=== PATIENT | female | born 1945 | race Caucasian/White ===

== ENCOUNTER → 2016-06-06 | Outpatient (CLI) | payer MEDICARE, MEDICAID ==
[~2016-06-06] MED LIST: PREMARIN
[2016-06-06 12:26] LABS: Basophils # (auto) 0 uL; Basophils % (auto) 0.4 % (0.0-2.0); Eosinophils # (auto) 0.3 uL; Eosinophils % (auto) 5.5 % (0.0-7.0); Hematocrit 40.3 % (36.0-46.0); Hemoglobin 13.1 g/dL (12.2-16.2); Lymphocytes # (auto) 1.7 uL; Lymphocytes % (auto) 29.5 % (10.0-50.0); Mean Corpuscular Hemoglobin 30.2 pg (28.0-32.0); Mean Corpuscular Hgb Conc. 32.4 g/dL (32.0-36.0); Mean Corpuscular Volume 93.2 fL (80.0-100.0); Mean Platelet Volume 9.6 fL (7.4-10.4); Monocytes # (auto) 0.4 uL; Monocytes % (auto) 7.3 % (0.0-12.0); Neutrophils # (auto) 3.3 uL; Neutrophils % (auto) 57.3 % (37.0-80.0); Platelet Count (auto) 296 10^3/uL (140-450); Red Cell Distribution Width 13.9 % (11.6-16.0); White Blood Cell 5.7 10^3/uL (4.4-10.8)
[2016-06-06 12:59] LABS: Albumin 3.7 g/dL (3.4-5.0); Calcium 10.2 mg/dL (8.5-10.1); Potassium 4.6 mmol/L (3.5-5.1)
[2016-06-06 13:04] LABS: Bilirubin, Total 0.3 mg/dL (0.2-1.0); Total Protein 7.6 g/dL (6.4-8.2)
== END | disposition home or self-care (01) ==
LOC: Rad HDHVI 10:45
PROVIDERS: ATTEND Internal Medicine Cardiovascular Disease
DX: I10 Essential (primary) hypertension (principal); D64.9 Anemia, unspecified
CPT/HCPCS: 36415; 70490; 80053; 85025

== ENCOUNTER → 2016-08-24 | Outpatient (CLI) | payer MEDICARE, MEDICAID ==
[2016-08-24 12:32] LABS: BUN/Creatinine Ratio 27.5; Calcium 9.8 mg/dL (8.5-10.1); Magnesium 2.5 mg/dL (1.6-2.6); Potassium 3.4 mmol/L (3.5-5.1)
== END | disposition home or self-care (01) ==
LOC: LAB 10:01
PROVIDERS: ATTEND Internal Medicine Cardiovascular Disease
DX: I10 Essential (primary) hypertension (principal); E83.42 Hypomagnesemia; D51.9 Vitamin B12 deficiency anemia, unspecified
CPT/HCPCS: 36415; 80048; 82607; 83735

== ENCOUNTER → 2016-10-05 | Outpatient (CLI) | payer MEDICARE, MEDICAID | END | disposition home or self-care (01) | LOC: Rad HDHVI 10:17 | PROVIDERS: ATTEND Internal Medicine Cardiovascular Disease | DX: M17.12 Unilateral primary osteoarthritis, left knee (principal); M47.894 Other spondylosis, thoracic region; I70.0 Atherosclerosis of aorta; R06.02 Shortness of breath | CPT/HCPCS: 71020; 73562 ==

== ENCOUNTER → 2017-01-17 | Outpatient (CLI) | payer MEDICARE, MEDICAID | END | disposition home or self-care (01) | LOC: CHF HDHVI 10:15 | PROVIDERS: ATTEND Internal Medicine Cardiovascular Disease | DX: I50.9 Heart failure, unspecified (principal) | CPT/HCPCS: G0463 ==

== ENCOUNTER → 2017-02-10 | Outpatient (CLI) | payer MEDICARE, MEDICAID | LOC: Rad HDHVI 13:14 | PROVIDERS: ATTEND Internal Medicine Cardiovascular Disease | DX: Z01.811 Encounter for preprocedural respiratory examination (principal); M43.26 Fusion of spine, lumbar region | CPT/HCPCS: 71020 ==

== ENCOUNTER 2017-02-13 06:55 | Day surgery (SDC) | payer MEDICARE, MEDICAID ==
[2017-02-13] MEDS ORDERED: IOHEXOL 350 MG/ML 100ML IJ ONE ×2 (08:10→09:05)
[2017-02-13] MEDS ORDERED: LIDOCAINE 2%HCL (LOCAL ANESTH.) INJ 20ML MDV ONE (08:10)
[2017-02-13] MEDS ORDERED: HEPARIN 1,000 UNITS/ml 1ML VIAL ONE (09:12)
[2017-02-13] MEDS ORDERED: MIDAZOLAM HCL 1MG/1ML-2 ML VIAL ONE (09:12)
[2017-02-13] MEDS ORDERED: fentaNYL CITRATE 100 MCG/2 ML VL ONE (09:12)
[2017-02-13] MEDS ORDERED: ANGIOMAX 250 MG VIAL IV ONE (09:13)
[2017-02-13] MEDS ORDERED: SODIUM CHL 0.9% 0 ML ONE (09:13)
[2017-02-13] MEDS ORDERED: cloNIDine HCL 0.1 MG TAB PO ONE (10:15)
== END 2017-02-13 12:30 | disposition home or self-care (01) ==
LOC: CATH 06:55
PROVIDERS: ATTEND Internal Medicine
DX: R07.9 Chest pain, unspecified (principal); Z88.4 Allergy status to anesthetic agent; Z88.0 Allergy status to penicillin; Z88.8 Allergy status to other drugs, medicaments and biological substances; I10 Essential (primary) hypertension; F41.9 Anxiety disorder, unspecified
CPT/HCPCS: 93458; C1760; C1894; J1644; J2250; J3010; J7030; J7040; Q9967; 99152; 99153

== ENCOUNTER → 2017-03-13 | Outpatient (CLI) | payer MEDICARE, MEDICAID | END | disposition home or self-care (01) | LOC: RADONC 12:43 | PROVIDERS: ATTEND Internal Medicine | DX: M85.80 Other specified disorders of bone density and structure, unspecified site (principal); M19.011 Primary osteoarthritis, right shoulder; S49.91XA Unspecified injury of right shoulder and upper arm, initial encounter; X58.XXXA Exposure to other specified factors, initial encounter; Y93.89 Activity, other specified; Y92.89 Other specified places as the place of occurrence of the external cause; Y99.8 Other external cause status | CPT/HCPCS: 73010; 73030; 73060 ==

== ENCOUNTER → 2017-08-09 | Outpatient (CLI) | payer MEDICARE, MEDICAID ==
[2017-08-09 12:17] LABS: Basophils # (auto) 0 uL; Basophils % (auto) 0.6 % (0.0-2.0); Eosinophils # (auto) 0.1 uL; Eosinophils % (auto) 1.7 % (0.0-7.0); Hematocrit 42.2 % (36.0-46.0); Hemoglobin 13.9 g/dL (12.2-16.2); Lymphocytes # (auto) 1.7 uL; Lymphocytes % (auto) 29.8 % (10.0-50.0); Mean Corpuscular Hemoglobin 30.9 pg (28.0-32.0); Mean Corpuscular Hgb Conc. 32.9 g/dL (32.0-36.0); Monocytes # (auto) 0.3 uL; Monocytes % (auto) 4.8 % (0.0-12.0); Neutrophils # (auto) 3.7 uL; Neutrophils % (auto) 63.1 % (37.0-80.0); Nucleated Red Blood Cells % 0.1 %; Platelet Count (auto) 291 10^3/uL (140-450); Red Blood Cells 4.49 10^6/uL (4.0-5.20); Red Cell Distribution Width 14.3 % (11.8-14.3); White Blood Cell 5.8 10^3/uL (4.4-10.8)
[2017-08-09 12:20] LABS: BUN/Creatinine Ratio 18.8; Calcium 10.1 mg/dL (8.5-10.1); Potassium 3.2 mmol/L (3.5-5.1)
[2017-08-09 12:27] LABS: INR 0.9 (0.9-1.15); Partial Thromboplastin Time 25.9 sec (22.64-33.71); Prothrombin Time 9.8 sec (9.37-12.3)
== END | disposition home or self-care (01) ==
LOC: LAB 10:45
PROVIDERS: ATTEND Internal Medicine Cardiovascular Disease
DX: Z01.812 Encounter for preprocedural laboratory examination (principal); I10 Essential (primary) hypertension; Z79.01 Long term (current) use of anticoagulants
CPT/HCPCS: 36415; 80048; 85025; 85610; 85730

== ENCOUNTER → 2018-05-01 | Outpatient (CLI) | payer MEDICARE, MEDICAID ==
[2018-05-01 15:58] LABS: Basophils # (auto) 0.1 uL; Basophils % (auto) 0.9 % (0.0-2.0); Eosinophils # (auto) 0.2 uL; Eosinophils % (auto) 3.2 % (0.0-7.0); Hemoglobin 13.3 g/dL (12.2-16.2); Lymphocytes # (auto) 1.7 uL; Lymphocytes % (auto) 30.5 % (10.0-50.0); Mean Corpuscular Hemoglobin 31.1 pg (28.0-32.0); Mean Corpuscular Hgb Conc. 33.3 g/dL (32.0-36.0); Mean Corpuscular Volume 93.3 fL (80.0-100.0); Monocytes # (auto) 0.4 uL; Monocytes % (auto) 7.4 % (0.0-12.0); Neutrophils # (auto) 3.2 uL; Nucleated Red Blood Cells % 0.4 %; Platelet Count (auto) 232 10^3/uL (140-450); Red Blood Cells 4.29 10^6/uL (4.0-5.20); Red Cell Distribution Width 13.4 % (11.8-14.3); White Blood Cell 5.5 10^3/uL (4.4-10.8)
[2018-05-01 16:08] LABS: Calcium 9.6 mg/dL (8.5-10.1); Potassium 3.9 mmol/L (3.5-5.1)
[2018-05-01 16:10] LABS: BUN/Creatinine Ratio 36.1
[2018-05-01 16:12] LABS: INR 0.92 (0.9-1.15); Partial Thromboplastin Time 27.1 sec (23.78-33.04); Prothrombin Time 9.9 sec (9.27-12.13)
== END | disposition home or self-care (01) ==
LOC: LAB 12:23
PROVIDERS: ATTEND Internal Medicine
DX: Z01.812 Encounter for preprocedural laboratory examination (principal); D64.9 Anemia, unspecified; R79.1 Abnormal coagulation profile; I10 Essential (primary) hypertension
CPT/HCPCS: 36415; 80048; 85025; 85610; 85730

== ENCOUNTER → 2018-05-02 | Outpatient (CLI) | payer MEDICARE, MEDICAID | END | disposition home or self-care (01) | LOC: Rad HDHVI 12:52 | PROVIDERS: ATTEND Internal Medicine Cardiovascular Disease | DX: I08.0 Rheumatic disorders of both mitral and aortic valves (principal) | CPT/HCPCS: 93306 ==

== ENCOUNTER 2018-11-22 16:08 | Emergency (ER) | payer MEDICARE, MEDICAID ==
[~2018-11-22] VITALS: Ht 162.6 cm; Wt 65.8 kg
[2018-11-22] MEDS ORDERED: KETOROLAC TROMETH 60MG/2ML VIAL IM ONE (17:45)
[2018-11-22 20:05] VITALS: BP 186/87
== END 2018-11-22 20:17 | disposition home or self-care (01) ==
LOC: EDBD 16:08 → ER 16:08
DX: S66.911A Strain of unspecified muscle, fascia and tendon at wrist and hand level, right hand, initial encounter (principal); S39.012A Strain of muscle, fascia and tendon of lower back, initial encounter; I10 Essential (primary) hypertension; M10.9 Gout, unspecified; Z90.49 Acquired absence of other specified parts of digestive tract; Z90.710 Acquired absence of both cervix and uterus; Z90.89 Acquired absence of other organs; Z88.0 Allergy status to penicillin; Z88.6 Allergy status to analgesic agent; V43.52XA Car driver injured in collision with other type car in traffic accident, initial encounter; Y93.89 Activity, other specified; Y99.8 Other external cause status; Y92.410 Unspecified street and highway as the place of occurrence of the external cause
CPT/HCPCS: 72100; 73100; 96372; 99283; J1885

== ENCOUNTER → 2018-12-12 | Outpatient (CLI) | payer MEDICARE, MEDICAID ==
[2018-12-12 15:52] LABS: Basophils # (auto) 0 uL; Basophils % (auto) 0.5 % (0.0-2.0); Eosinophils # (auto) 0.2 uL; Eosinophils % (auto) 2.1 % (0.0-7.0); Hematocrit 40.5 % (36.0-46.0); Hemoglobin 13.3 g/dL (12.2-16.2); Lymphocytes # (auto) 1.5 uL; Lymphocytes % (auto) 19.1 % (10.0-50.0); Mean Corpuscular Hemoglobin 31.7 pg (28.0-32.0); Mean Corpuscular Hgb Conc. 32.8 g/dL (32.0-36.0); Mean Corpuscular Volume 96.6 fL (80.0-100.0); Monocytes # (auto) 0.4 uL; Monocytes % (auto) 4.7 % (0.0-12.0); Neutrophils # (auto) 5.6 uL; Neutrophils % (auto) 73.6 % (37.0-80.0); Platelet Count (auto) 283 10^3/uL (140-450); White Blood Cell 7.6 10^3/uL (4.4-10.8)
[2018-12-12 16:04] LABS: BUN/Creatinine Ratio 24.5; Calcium 9.9 mg/dL (8.5-10.1); Potassium 3.6 mmol/L (3.5-5.1)
[2018-12-12 17:43] LABS: INR < 0.93 (0.9-1.15); Partial Thromboplastin Time 26.4 sec (23.64-32.05)
== END | disposition home or self-care (01) ==
LOC: LAB 11:56
PROVIDERS: ATTEND Internal Medicine Cardiovascular Disease
DX: Z01.812 Encounter for preprocedural laboratory examination (principal); I10 Essential (primary) hypertension; Z98.890 Other specified postprocedural states
CPT/HCPCS: 36415; 80048; 85025; 85610; 85730

== ENCOUNTER → 2019-05-17 | Outpatient (CLI) | payer MEDICARE, MEDICAID ==
[2019-05-17 09:25] VITALS: BP 156/80
--- NOTE | 2019-05-17 09:25 | NUR ---
CHF PT ARRIVED TO THE CHF CLINIC FOR A PRE OP APPOINTMENT FOR REVERSE SHOULDER SURGERY. A/O X4 VSS
--- NOTE | 2019-05-17 09:45 | NUR ---
Pre-Op Discharge Summary: See e-MAR for any medications given for this visit. Pre-op orders received and carried out per MD of EKG and chest xrays. Patient given a copy of EKG with instructions to go to [facility] out patient for further follow up care. LABS WERE NOT DRAWN SURGERY DATE IS TOO FAR OUT. NOTE EKG DONE BY ISMA MELGAR
[2019-05-17 14:06] VITALS: BP 156/80
== END | disposition home or self-care (01) ==
LOC: Rad HDHVI 09:00
PROVIDERS: ATTEND Internal Medicine Cardiovascular Disease
DX: Z01.811 Encounter for preprocedural respiratory examination (principal); I70.0 Atherosclerosis of aorta
CPT/HCPCS: 71045; 93005; G0463

== ENCOUNTER 2019-07-29 06:22 | Inpatient (IN) | payer MEDICARE, MEDICAID ==
[2019-07-23 15:09] LABS: Basophils # (auto) 0.1 10 ^3/uL (0-0.2); Basophils % (auto) 0.9 % (0.0-2.0); Eosinophils # (auto) 0.1 10 ^3/uL (0-0.8); Eosinophils % (auto) 2.3 % (0.0-7.0); Hematocrit 40.7 % (36.0-46.0); Hemoglobin 13.1 g/dL (12.2-16.2); Lymphocytes # (auto) 1.8 10 ^3/uL (0.4-5.4); Lymphocytes % (auto) 31.1 % (10.0-50.0); Mean Corpuscular Hemoglobin 30.2 pg (28.0-32.0); Mean Corpuscular Hgb Conc. 32.1 g/dL (32.0-36.0); Mean Corpuscular Volume 93.9 fL (80.0-100.0); Monocytes # (auto) 0.4 10 ^3/uL (0-1.3); Monocytes % (auto) 7.4 % (0.0-12.0); Neutrophils # (auto) 3.4 10 ^3/uL (1.6-8.6); Neutrophils % (auto) 58.3 % (37.0-80.0); Platelet Count (auto) 278 10^3/uL (140-450); Red Blood Cells 4.33 10^6/uL (4.0-5.20); Red Cell Distribution Width 13.3 % (11.8-14.3); White Blood Cell 5.9 10^3/uL (4.4-10.8)
[2019-07-23 15:31] LABS: INR 0.97 (0.9-1.15)
[2019-07-23 15:45] LABS: Urine Bacteria NONE SEEN /hpf (None Seen); Urine Blood Negative /uL (Negative); Urine Hyaline Cast FEW /lpf (0 - 2); Urine Mucus FEW (None Seen); Urine Specific Gravity 1.026 (1.001-1.035); Urine WBC 1 /hpf (0 - 5)
[2019-07-23 15:59] LABS: Albumin 3.8 g/dL (3.4-5.0); Potassium 3.6 mmol/L (3.5-5.1)
[2019-07-23 16:03] LABS: BUN/Creatinine Ratio 29.5; Bilirubin, Total 0.5 mg/dL (0.2-1.0); Total Protein 7.8 g/dL (6.4-8.2)
[~2019-07-29] VITALS: Ht 162.6 cm; Wt 69.6 kg
[~2019-07-29 06:22] MED LIST changes: +ALPR0.25 PO; +ATEN-60 PO; +HYDR25TA4 PO; +IBUP800T24 PO; +NAPR375T27 PO; -PREMARIN; +ZOLP-158 PO
[2019-07-29] MEDS ORDERED: VANCOMYCIN 1GM/250ML 250 ML IV ONE (06:45)
[2019-07-29] MEDS ORDERED: ACETAMINOPHEN IV 1000 MG/100ML (10MG/ML) IV ONE (06:45)
[2019-07-29] MEDS ORDERED: PREGABALIN CAPSULE 75 MG CAP PO ONE (06:45)
[2019-07-29] MEDS ORDERED: CELECOXIB 100 MG CAP PO ONE (06:45)
[2019-07-29] MEDS ORDERED: VANCOMYCIN HCL 1000 MG VL ONE ×2 (06:48→07:20)
[2019-07-29] MEDS ORDERED: CELECOXIB 100 MG CAP ONE (06:48)
[2019-07-29] MEDS ORDERED: ACETAMINOPHEN IV 100 ML IV ONE (06:48)
[2019-07-29] MEDS ORDERED: BUPIVACAINE W/ EPINEPH 0.25% INJ 50ML MDV ONE (07:18)
[2019-07-29] MEDS ORDERED: MORPHINE SULF(PF) 0.5MG/ML 10ML VIAL ONE (07:21)
[2019-07-29] MEDS ORDERED: ROPIVACAINE 0.5% (5MG/ML) 20ML AMPULE IJ ONE (07:35)
[2019-07-29] MEDS ORDERED: FAMOTIDINE (10MG/ML) 2ML VL IV ONE (07:36)
[2019-07-29] MEDS ORDERED: PROPOFOL 10 MG/ML 20 ML IV ONE (07:39)
[2019-07-29] MEDS ORDERED: MIDAZOLAM HCL 1MG/1ML-2 ML VIAL IV ONE (07:39)
[2019-07-29] MEDS ORDERED: ROCURONIUM 10MG/ML 10ML VIAL IV ONE (07:39)
[2019-07-29] MEDS ORDERED: NEOSTIGMINE 1 MG/ML INJ (10mg/10ML VIAL) IV ONE (07:39)
[2019-07-29] MEDS ORDERED: HYDROmorphone HCL 2 MG/ML VL IV ONE (07:39)
[2019-07-29] MEDS ORDERED: fentaNYL CITRATE 100 MCG/2 ML VL IV ONE (07:39)
[2019-07-29] MEDS ORDERED: ONDANSETRON HCL 4 MG/2 ML VIAL IV ONE (07:39)
[2019-07-29] MEDS ORDERED: DexAMETHasone SOD PHOS 10MG/1ML VIAL INJ IV ONE (07:39)
[2019-07-29] MEDS ORDERED: GLYCOPYRROLATE 0.2 MG/ML 1ML VIAL IV ONE (07:39)
[2019-07-29] MEDS: TRANEXAMIC ACID 20 ML ONE ×2 (08:18→09:39)
[2019-07-29] MEDS: KETOROLAC TROMETH 30 MG/ML 1ML VIAL ONE (09:36)
[2019-07-29] MEDS ORDERED: NALOXONE HCL 0.4 MG/ML VIAL ONE (09:57)
[2019-07-29] MEDS ORDERED: OXYCODONE W/ ACETAMINOPHEN 5/325MG TABLET PO PRN ×2 (10:15)
[2019-07-29] MEDS ORDERED: NITROGLYCERIN 0.4 MG SL TAB SL PRN (10:15)
[2019-07-29] MEDS ORDERED: ALPRAZolam 0.25 MG TAB PO PRN (10:15)
[2019-07-29] MEDS ORDERED: MORPHINE SULF INJ 2 MG/ML SYRINGE 1ML IV PRN (10:15)
[2019-07-29] MEDS ORDERED: ENOXAPARIN SOD 40 MG/0.4 ML SYRINGE SC ONE (11:00)
[2019-07-29] MEDS ORDERED: ATENOLOL 25 MG TAB PO ONE (11:00)
[2019-07-29] MEDS ORDERED: HYDROmorphone HCL 2 MG/ML VL IV PRN (11:00)
[2019-07-29] MEDS ORDERED: ONDANSETRON HCL 4 MG/2 ML VIAL IV PRN (11:00)
[2019-07-29] MEDS ORDERED: LABETALOL HCL 5 MG/ML 4ML SYRINGE IV PRN (11:00)
[2019-07-29] MEDS ORDERED: HCTZ 25 MG TAB PO ONE (11:00)
[2019-07-29 11:20] VITALS: BP 143/72
--- NOTE | 2019-07-29 11:20 | NUR ---
MS admit from [facility] admitted to Medical surgical unit after SBAR received. Patient oriented to JOSSELINE SALINAS, RN primary RN, unit, room, bed, and unit policies regarding patient care and visiting hours. Patient placed on bedside oxygen 2L, weighed by bedscale and encouraged to call if they need something. All questions and concerns addressed, patient verbalized understanding. Bed alarm on for safety as patient still under effects of anesthesia.
[2019-07-29] MEDS ORDERED: KETOROLAC TROMETH 15 mg/ml 1ML VL IV SCH (12:00)
[2019-07-29 13:00] VITALS: BP 129/80
[2019-07-29] MEDS: LACTATED RINGER'S 1,000 ML IV SCH ×2 (14:29→21:30)
[2019-07-29] MEDS: CLINDAMYCIN HCL 150 MG CAP PO SCH ×2 (14:51→21:31)
--- NOTE | 2019-07-29 14:57 | NUR ---
Attempted PT eval. Pt states she is very sleepy and is having difficulty keeping her eyes open. Pt requested to hold PT until tomorrow. Will attempt again in the morning.
[2019-07-29] MEDS: KETOROLAC TROMETH 30 MG/ML 1ML VIAL IV SCH ×2 (14:58→18:00)
[2019-07-29 17:00] VITALS: BP 151/74
[2019-07-29] MEDS: HCTZ 25 MG TAB PO SCH (18:00)
--- NOTE | 2019-07-29 18:30 | NUR ---
Nausea Patient complaining of nausea with one episode of vomiting. Patient also complaining of dizziness. Patient refusing scheduled 1800 medications do to nausea. Will administer Zofran PRN as ordered and continue to monitor.
[2019-07-29] MEDS: ONDANSETRON HCL 4 MG/2 ML VIAL IV PRN (18:36)
[2019-07-29] MEDS: VANCOMYCIN 1GM/250ML 250 ML IV SCH (21:30)
[2019-07-29] MEDS: ZOLPIDEM TARTRATE 5 MG TAB PO SCH (21:31)
[2019-07-29] MEDS: DOCUSATE SOD 100 MG CAP PO SCH (21:31)
[2019-07-29] MEDS: ATENOLOL 25 MG TAB PO SCH (21:33)
[2019-07-29 22:00] VITALS: BP 129/73
[2019-07-30] MEDS: KETOROLAC TROMETH 30 MG/ML 1ML VIAL IV SCH ×5 (00:47→18:10)
[2019-07-30] MEDS: ONDANSETRON HCL 4 MG/2 ML VIAL IV PRN (00:48)
[2019-07-30 05:00] VITALS: BP 131/74
[2019-07-30 05:49] LABS: Hematocrit 34.2 % (36.0-46.0); Hemoglobin 11.2 g/dL (12.2-16.2)
[2019-07-30] MEDS: HCTZ 25 MG TAB PO SCH ×2 (06:00→18:11)
[2019-07-30] MEDS: CLINDAMYCIN HCL 150 MG CAP PO SCH (06:00)
[2019-07-30 06:28] LABS: Potassium 3.6 mmol/L (3.5-5.1)
[2019-07-30 06:39] LABS: BUN/Creatinine Ratio 18.8; Bilirubin, Total 0.6 mg/dL (0.2-1.0); Total Protein 6.5 g/dL (6.4-8.2)
[2019-07-30] MEDS: LACTATED RINGER'S 1,000 ML IV SCH ×2 (06:53→16:06)
--- NOTE | 2019-07-30 07:15 | NUR ---
Opening Shift Note Assumed care of patient, awake and alert. No S/S of distress/SOB or pain. Instructed on POC and to call for assistance PRN, will continue to monitor for changes Q1hr and PRN.
--- NOTE | 2019-07-30 08:15 | NUR ---
IV removal Infiltration noted on right hand and arm. Right IV 20 G DC'd with clean sterile technique, catheter fully intact. Pressure dressing applied to site. Patient tolerated well.
--- NOTE | 2019-07-30 08:30 | NUR ---
Rojas catheter dc'd Communication order to discontinue rojas catheter on 07/30/2019. Rojas dc'd with clean technique following deflation of balloon. Patient tolerated well with no complaints of pain. Continue care.
[2019-07-30 09:02] VITALS: BP 126/83
[2019-07-30] MEDS: VANCOMYCIN 1GM/250ML 250 ML IV SCH ×2 (10:00→10:45)
[2019-07-30] MEDS: DOCUSATE SOD 100 MG CAP PO SCH ×2 (10:28→22:00)
[2019-07-30] MEDS: ATENOLOL 25 MG TAB PO SCH ×2 (10:29→22:00)
[2019-07-30] MEDS: ENOXAPARIN SOD 40 MG/0.4 ML SYRINGE SC SCH (10:29)
--- NOTE | 2019-07-30 10:50 | NUR ---
IV insertion IV access obtained, via clean sterile technique by inserting 22 gauge catheter at right forearm after 1 attempt. IV secured properly. No trauma to site. Patient tolerated well.
[2019-07-30 12:50] VITALS: BP 141/71
--- NOTE | 2019-07-30 14:00 | NUR ---
PT walking Patient walking around nurses station, steady gait, no s/s of distress noted. Will continue to monitor.
[2019-07-30 16:24] VITALS: BP 116/53
--- NOTE | 2019-07-30 16:25 | NUR ---
Pain Patient complaining of pain to left shoulder s/p total shoulder replacement on 07/29/2019. Per patient pain is 10/10 and radiates to lower back/chest. Patient repositioned in bed for comfort. Will medicate patient with Dilaudid 1mg IV push as ordered by MD and continue to monitor.
[2019-07-30] MEDS: HYDROmorphone HCL 2 MG/ML VL IV PRN (16:31)
--- NOTE | 2019-07-30 17:01 | NUR ---
RE: Pain Per patient pain is now 3/10. Patient states she does not require any additional interventions for pain management at this moment. Patient repositioned for comfort. Call light within reach.
--- NOTE | 2019-07-30 19:50 | NUR ---
Opening Shift Note Assumed care of patient, awake, AAOx4. No S/S of distress/SOB or pain. On room air and ambulatory. S/P left shoulder surgery. Bed in lowest locked position, side rails up x2, call light within reach. Instructed on POC and to call for assist PRN, will continue to monitor for changes Q1hr and PRN.
[2019-07-30 22:00] VITALS: BP 124/60
[2019-07-30] MEDS: ZOLPIDEM TARTRATE 5 MG TAB PO SCH (22:00)
[2019-07-31] MEDS: LACTATED RINGER'S 1,000 ML IV SCH ×2 (01:44→12:06)
[2019-07-31 05:00] VITALS: BP 124/59
[2019-07-31] MEDS: HCTZ 25 MG TAB PO SCH (06:14)
[2019-07-31 06:54] LABS: Hematocrit 33.5 % (36.0-46.0); Hemoglobin 11.3 g/dL (12.2-16.2)
[2019-07-31] MEDS: ONDANSETRON HCL 4 MG/2 ML VIAL IV PRN (07:08)
[2019-07-31] MEDS: HYDROmorphone HCL 2 MG/ML VL IV PRN ×2 (07:08→14:29)
--- NOTE | 2019-07-31 07:30 | NUR ---
Opening Shift Note Assumed care of patient, awake and alert. No S/S of distress/SOB or pain. Instructed on POC and to call for assist PRN, will continue to monitor for changes Q1hr and PRN.
[2019-07-31 09:00] VITALS: BP 128/67
[2019-07-31] MEDS: ENOXAPARIN SOD 40 MG/0.4 ML SYRINGE SC SCH (09:58)
[2019-07-31] MEDS: DOCUSATE SOD 100 MG CAP PO SCH (09:58)
[2019-07-31] MEDS: ATENOLOL 25 MG TAB PO SCH (09:59)
[2019-07-31 13:00] VITALS: BP 128/59
--- NOTE | 2019-07-31 13:37 | NUR ---
MESSAGED LEFT FOR DR MURRAY RE: PT IS CLEARED BY SURGERY FOR DISCHARGE. WAITING FOR REPLY/CALL BACK.
--- NOTE | 2019-07-31 15:12 | NUR ---
Assessment Patient is a 73-year-old female who is alert and oriented. Prior to admission patient lived home alone and functioned independently. Patient informed me she could care for her own ADLs. Per patient she will return home to her prior living arrangements post discharge and family will transport her home. Patient informed me she does not have any medical equipment now. Patient stated she does not want any medical equipment. Advised patient there is a social service consult for safety evaluation. Patient informed me she has family support but would need help on the days her daughters are unable to assist. Provided patient with In home support service information. Patient accepted information. Information and choice letter was given to patient via phone regarding home health. Patient requested [facility] that doctor recommended. Informed patient clinical information will be faxed to [employer] [facility]. Informed patient she has a right to participate in all discharge planning. Patient verbalized understanding and agreed to discharge plan. Per Adilson with [facility] patient has been accepted and service to start within 24-48hrs upon d/c day. Informed MATA Saini. Addendum: 07/31/19 at 1514 by CLARKE LANDRY Amended: Links added.
[2019-07-31 17:00] VITALS: BP 135/73
[2019-07-31 17:09] VITALS: BP 128/67
--- NOTE | 2019-07-31 17:36 | NUR ---
HOME HEALTH INFORMATION PROVIDED TO PATIENT [facility] AND IN HOME SUPPORT SERVICE.
--- NOTE | 2019-07-31 18:41 | NUR ---
Discharge instructions given as ordered. Encourage to follow up with PMD as instructed. All questions and concerns addressed. Patient verbalized understanding. Medication reconciliation form completed and copy given to patient. . IV removed with catheter intact, pressure dressing applied. Patient taken to vehicle via wheelchair with all personal belongings, accompanied by staff and family member. No distress noted at time of departure. SLING ON LEFT ARM IN PLACE.
== END 2019-07-31 18:35 | disposition home health service (06) | DRG 483 ==
LOC: OVERFLOW 06:22 → EDSTATUS 07:00 → EAST 11:18
PROVIDERS: ADMIT Orthopaedic Surgery Adult Reconstructive Orthopaedic Surgery; ATTEND Internal Medicine Cardiovascular Disease
PROC: 0LS40ZZ Reposition Left Upper Arm Tendon, Open Approach (ICD-10-PCS; 2019-07-29)
PROC: 0RRK00Z Replacement of Left Shoulder Joint with Reverse Ball and Socket Synthetic Substitute, Open Approach (ICD-10-PCS; principal; 2019-07-29 07:38)
DX: M19.012 Primary osteoarthritis, left shoulder (principal); M75.102 Unspecified rotator cuff tear or rupture of left shoulder, not specified as traumatic; I10 Essential (primary) hypertension; Z79.899 Other long term (current) drug therapy
CPT/HCPCS: 36415; 73030; 80053; 81001; 85014; 85018; 85025; 85610; 85730; 86850; 86900; 86901; 87070; 87075; 87205; A4565; C1713; C1776; G0378; J0131; J1100; J1885; J2250; J2405; J2704; J3490

== ENCOUNTER → 2019-12-16 | Outpatient (CLI) | payer MEDICARE, MEDICAID ==
[~2019-12-16] MED LIST changes: -NAPR375T27 PO
== END | disposition home or self-care (01) ==
LOC: Rad HDHVI 12:44
PROVIDERS: ATTEND Internal Medicine Cardiovascular Disease
DX: M51.26 Other intervertebral disc displacement, lumbar region (principal); M48.061 Spinal stenosis, lumbar region without neurogenic claudication; R06.02 Shortness of breath; M25.78 Osteophyte, vertebrae; Z98.890 Other specified postprocedural states
CPT/HCPCS: 72131

== ENCOUNTER → 2020-04-13 | Outpatient (CLI) | payer MEDICARE, MEDICAID ==
[~2020-04-13] MED LIST changes: -IBUP800T24 PO; +IBUP800T27 PO; -ZOLP-158 PO; +ZOLP5TAB PO
== END | disposition home or self-care (01) ==
LOC: Rad HDHVI 15:01
PROVIDERS: ATTEND Internal Medicine Cardiovascular Disease
DX: I08.0 Rheumatic disorders of both mitral and aortic valves (principal); R06.02 Shortness of breath; I10 Essential (primary) hypertension
CPT/HCPCS: 93306

== ENCOUNTER → 2020-04-21 | Outpatient (CLI) | payer MEDICARE, MEDICAID ==
[~2020-04-21] VITALS: Ht 162.6 cm; Wt 58.5 kg
[~2020-04-21] MED LIST changes: +D5W 5% IV ONE; +DIPYRIDAMOLE (5MG/ML) 10 ML VIAL IV ONE; +DIPYRIDAMOLE IV ONE
== END | disposition home or self-care (01) ==
LOC: Rad HDHVI 08:43
PROVIDERS: ATTEND Internal Medicine Cardiovascular Disease
DX: I10 Essential (primary) hypertension (principal); R06.02 Shortness of breath; E78.5 Hyperlipidemia, unspecified; R07.89 Other chest pain; I25.2 Old myocardial infarction; Z82.49 Family history of ischemic heart disease and other diseases of the circulatory system
CPT/HCPCS: 78452; 93005; 96374; 96375; A9500; J1245

== ENCOUNTER → 2021-06-28 | Day surgery (SDC) | payer MEDICARE, MEDICAID ==
[2021-06-24 13:01] LABS: Basophils # (auto) 0.1 10 ^3/uL (0-0.2); Basophils % (auto) 0.6 % (0.0-2.0); Eosinophils # (auto) 0.2 10 ^3/uL (0-0.8); Eosinophils % (auto) 2.9 % (0.0-7.0); Hematocrit 35.5 % (36.0-46.0); Lymphocytes # (auto) 1.4 10 ^3/uL (0.4-5.4); Lymphocytes % (auto) 17.2 % (10.0-50.0); Mean Corpuscular Hemoglobin 31.4 pg (28.0-32.0); Mean Corpuscular Hgb Conc. 33.9 g/dL (32.0-36.0); Mean Corpuscular Volume 92.8 fL (80.0-100.0); Monocytes # (auto) 0.5 10 ^3/uL (0-1.3); Monocytes % (auto) 6.8 % (0.0-12.0); Neutrophils # (auto) 5.8 10 ^3/uL (1.6-8.6); Neutrophils % (auto) 72.5 % (37.0-80.0); Red Blood Cells 3.83 10^6/uL (4.0-5.20); Red Cell Distribution Width 13.5 % (11.8-14.3)
[2021-06-24 13:10] LABS: INR 0.99 (0.9-1.15); Partial Thromboplastin Time 25.1 sec (23.6-33.0)
[2021-06-24 13:13] LABS: Urine Bacteria NONE SEEN /hpf (None Seen); Urine Blood Negative /uL (Negative); Urine Specific Gravity 1.022 (1.001-1.035); Urine WBC 3 /hpf (0 - 5)
[2021-06-24 13:23] LABS: Calcium 10.2 mg/dL (8.5-10.1); Potassium 3.2 mmol/L (3.5-5.1)
[2021-06-24 13:28] LABS: Albumin 3.2 g/dL (3.4-5.0); BUN/Creatinine Ratio 29.3; Bilirubin, Total 0.6 mg/dL (0.2-1.0); Total Protein 7.5 g/dL (6.4-8.2)
[~2021-06-28] VITALS: Ht 162.6 cm; Wt 57.6 kg
[~2021-06-28] MED LIST changes: +BUPIVACAINE 0.25% INJ 50ML VIAL ONE; -D5W 5% IV ONE; -DIPYRIDAMOLE (5MG/ML) 10 ML VIAL IV ONE; -DIPYRIDAMOLE IV ONE; +DexAMETHasone SOD PHOS 10MG/1ML VIAL INJ ONE; +KETOROLAC TROMETH 30 MG/ML 1ML VIAL IV ONE; +LABETALOL HCL 5 MG/ML 4ML SYRINGE IV ONE; +METOCLOPRAMIDE HCL 5MG/ml INJ 2ml VIAL IV PRN; +MIDAZOLAM HCL 2MG/2ML 2ml VIAL (1mg/ml) ONE; +MORPHINE SULFATE 4 MG/ML SYR/VIAL IV PRN; +ONDANSETRON HCL 4 MG/2 ML VIAL ONE; +PROPOFOL 10 MG/ML 20 ML IV ONE; +ROCURONIUM 10MG/ML 10ML VIAL IV ONE; +SODIUM CHLORIDE LOCK 10 ML ONE; +SUCCINYLCHOLINE CHLORIDE 20 MG/ML 10ML VIAL IV ONE; +VANCOMYCIN HCL 1000 MG VL ONE; +VANCOMYCIN HCL 1000 MG VL XX STA; +fentaNYL CITRATE 100 MCG/2 ML VL IV PRN; +fentaNYL CITRATE 100 MCG/2 ML VL ONE
[2021-06-28] MEDS: HYDROmorphone HCL 2 MG/ML VL IV PRN ×4 (12:22→12:52)
[2021-06-28 13:50] VITALS: BP 168/81
== END | disposition home or self-care (01) ==
LOC: SUR 09:24
PROVIDERS: ATTEND Orthopaedic Surgery Adult Reconstructive Orthopaedic Surgery
DX: S82.042A Displaced comminuted fracture of left patella, initial encounter for closed fracture (principal); F41.9 Anxiety disorder, unspecified; I10 Essential (primary) hypertension; G89.29 Other chronic pain; Z80.1 Family history of malignant neoplasm of trachea, bronchus and lung; Z20.822 Contact with and (suspected) exposure to COVID-19; X58.XXXA Exposure to other specified factors, initial encounter; Y93.89 Activity, other specified; Y92.89 Other specified places as the place of occurrence of the external cause; Y99.8 Other external cause status
CPT/HCPCS: 27524; 36415; 73560; 80053; 81001; 85025; 85610; 85730; J0330; J1100; J1170; J1885; J2250; J2270; J2405; J2704; J3010; J3370; J3490; U0003; 76000

== ENCOUNTER → 2021-12-07 | Outpatient (CLI) | payer MEDICARE, MEDICAID ==
[~2021-12-07] MED LIST changes: -BUPIVACAINE 0.25% INJ 50ML VIAL ONE; -DexAMETHasone SOD PHOS 10MG/1ML VIAL INJ ONE; +IOHEXOL 350 MG/ML 100ML IJ ONE; -KETOROLAC TROMETH 30 MG/ML 1ML VIAL IV ONE; -LABETALOL HCL 5 MG/ML 4ML SYRINGE IV ONE; -METOCLOPRAMIDE HCL 5MG/ml INJ 2ml VIAL IV PRN; -MIDAZOLAM HCL 2MG/2ML 2ml VIAL (1mg/ml) ONE; -MORPHINE SULFATE 4 MG/ML SYR/VIAL IV PRN; -ONDANSETRON HCL 4 MG/2 ML VIAL ONE; -PROPOFOL 10 MG/ML 20 ML IV ONE; -ROCURONIUM 10MG/ML 10ML VIAL IV ONE; -SODIUM CHLORIDE LOCK 10 ML ONE; -SUCCINYLCHOLINE CHLORIDE 20 MG/ML 10ML VIAL IV ONE; -VANCOMYCIN HCL 1000 MG VL ONE; -VANCOMYCIN HCL 1000 MG VL XX STA; +cloNIDine HCL 0.1 MG TAB ONE; +cloNIDine HCL 0.1 MG TAB PO ONE; -fentaNYL CITRATE 100 MCG/2 ML VL IV PRN; -fentaNYL CITRATE 100 MCG/2 ML VL ONE
[2021-12-07 11:54] VITALS: BP 166/77
[2021-12-07 14:24] VITALS: BP 143/66
== END | disposition home or self-care (01) ==
LOC: Rad HDHVI 11:42
PROVIDERS: ATTEND Internal Medicine Cardiovascular Disease
DX: R94.4 Abnormal results of kidney function studies (principal); M25.512 Pain in left shoulder; F41.9 Anxiety disorder, unspecified; M54.2 Cervicalgia; R06.02 Shortness of breath; R49.1 Aphonia; J38.00 Paralysis of vocal cords and larynx, unspecified; R05.9 Cough, unspecified; R13.10 Dysphagia, unspecified; Z96.612 Presence of left artificial shoulder joint
CPT/HCPCS: 36415; 70491; 71260; 73200; 82565; 84520; G0463; Q9967

== ENCOUNTER → 2022-02-25 | Outpatient (CLI) | payer MEDICARE, MEDICAID ==
[~2022-02-25] MED LIST changes: -IOHEXOL 350 MG/ML 100ML IJ ONE; -cloNIDine HCL 0.1 MG TAB ONE; -cloNIDine HCL 0.1 MG TAB PO ONE
[2022-02-25 11:48] LABS: Basophils # (auto) 0 10 ^3/uL (0-0.2); Basophils % (auto) 0.7 % (0.0-2.0); Eosinophils # (auto) 0.2 10 ^3/uL (0-0.8); Eosinophils % (auto) 3.9 % (0.0-7.0); Hematocrit 37.2 % (36.0-46.0); Hemoglobin 12.2 g/dL (12.2-16.2); Lymphocytes # (auto) 1.6 10 ^3/uL (0.4-5.4); Lymphocytes % (auto) 25.2 % (10.0-50.0); Mean Corpuscular Hemoglobin 31.7 pg (28.0-32.0); Mean Corpuscular Hgb Conc. 32.8 g/dL (32.0-36.0); Mean Corpuscular Volume 96.8 fL (80.0-100.0); Monocytes # (auto) 0.5 10 ^3/uL (0-1.3); Monocytes % (auto) 8.5 % (0.0-12.0); Neutrophils # (auto) 3.9 10 ^3/uL (1.6-8.6); Neutrophils % (auto) 61.7 % (37.0-80.0); Nucleated Red Blood Cells % 0.1 %; Red Blood Cells 3.84 10^6/uL (4.0-5.20); Red Cell Distribution Width 13.6 % (11.8-14.3); White Blood Cell 6.3 10^3/uL (4.4-10.8)
[2022-02-25 12:05] LABS: Potassium 3.9 mmol/L (3.5-5.1)
[2022-02-25 12:15] LABS: Albumin 3.6 g/dL (3.4-5.0); BUN/Creatinine Ratio 26.4; Bilirubin, Total 0.3 mg/dL (0.2-1.0); Calcium 10.4 mg/dL (8.5-10.1); Total Protein 6.9 g/dL (6.4-8.2)
[2022-02-25 13:00] LABS: Free T4 (Free Thyroxine) 1.02 ng/dL (0.89-1.76)
[2022-02-25 14:33] LABS: Urine Blood Negative /uL (Negative); Urine Specific Gravity 1.019 (1.001-1.035)
== END | disposition home or self-care (01) ==
LOC: LAB 10:14
PROVIDERS: ATTEND Internal Medicine Cardiovascular Disease
DX: I10 Essential (primary) hypertension (principal); E55.9 Vitamin D deficiency, unspecified; D51.3 Other dietary vitamin B12 deficiency anemia; R53.1 Weakness; R30.0 Dysuria; E11.9 Type 2 diabetes mellitus without complications; D64.9 Anemia, unspecified; R00.2 Palpitations
CPT/HCPCS: 36415; 80053; 80061; 81003; 82306; 82607; 83036; 84439; 84443; 85025; 87086

== ENCOUNTER → 2022-05-06 | Outpatient (CLI) | payer MEDICARE, MEDICAID ==
[2022-05-06 16:46] LABS: Urine Blood Negative /uL (Negative); Urine Specific Gravity 1.025 (1.001-1.035)
== END | disposition home or self-care (01) ==
LOC: Rad HDHVI 12:50
PROVIDERS: ATTEND Internal Medicine Cardiovascular Disease
DX: N39.0 Urinary tract infection, site not specified (principal)
CPT/HCPCS: 72131; 81003; 87086

== ENCOUNTER 2022-09-30 11:10 | Emergency (ER) | payer MEDICARE, MEDICAID ==
[~2022-09-30] VITALS: Ht 162.6 cm; Wt 55.9 kg
[~2022-09-30 11:10] MED LIST changes: +IBUP-1456 PO; -IBUP800T27 PO
[2022-09-30] MEDS ORDERED: HYDROcodone-ACET 10/325MG TAB PO ONE (11:45)
[2022-09-30 12:16] LABS: Basophils # (auto) 0 10 ^3/uL (0-0.2); Basophils % (auto) 0.7 % (0.0-2.0); Eosinophils # (auto) 0.2 10 ^3/uL (0-0.8); Eosinophils % (auto) 2.9 % (0.0-7.0); Hematocrit 38.4 % (36.0-46.0); Hemoglobin 12.7 g/dL (12.2-16.2); Lymphocytes # (auto) 1.6 10 ^3/uL (0.4-5.4); Mean Corpuscular Hemoglobin 31.2 pg (28.0-32.0); Mean Corpuscular Hgb Conc. 33.2 g/dL (32.0-36.0); Monocytes # (auto) 0.4 10 ^3/uL (0-1.3); Monocytes % (auto) 7.2 % (0.0-12.0); Neutrophils # (auto) 3.4 10 ^3/uL (1.6-8.6); Neutrophils % (auto) 61.2 % (37.0-80.0); Nucleated Red Blood Cells % 0.2 %; Red Blood Cells 4.08 10^6/uL (4.0-5.20); White Blood Cell 5.6 10^3/uL (4.4-10.8)
[2022-09-30 12:20] LABS: Urine Bacteria NONE SEEN /hpf (None Seen); Urine Blood Negative /uL (Negative); Urine Specific Gravity 1.007 (1.001-1.035); Urine WBC 1 /hpf (0 - 5)
[2022-09-30 12:30] LABS: Albumin 3.3 g/dL (3.4-5.0)
[2022-09-30 12:35] LABS: Bilirubin, Total 0.3 mg/dL (0.2-1.0); Total Protein 7.7 g/dL (6.4-8.2)
[2022-09-30 12:37] LABS: Potassium 2.9 mmol/L (3.5-5.1)
[2022-09-30] MEDS ORDERED: POTASSIUM EFFERVESENT TAB 25 MEQ PO ONE (12:45)
[2022-09-30] MEDS ORDERED: PANT40TA2 PO (13:52)
[2022-09-30 14:14] VITALS: BP 166/75
[2022-09-30 15:50] LABS: BUN/Creatinine Ratio 17.1 (10.0-20.0)
== END 2022-09-30 14:18 | disposition home or self-care (01) ==
LOC: ER 11:10
DX: K29.70 Gastritis, unspecified, without bleeding (principal); I10 Essential (primary) hypertension; Z90.710 Acquired absence of both cervix and uterus; Z90.49 Acquired absence of other specified parts of digestive tract; Z88.0 Allergy status to penicillin; Z88.6 Allergy status to analgesic agent; Z87.440 Personal history of urinary (tract) infections
CPT/HCPCS: 36415; 74176; 80053; 81001; 83690; 85025

== ENCOUNTER → 2022-10-07 | Outpatient (CLI) | payer MEDICARE, MEDICAID ==
[~2022-10-07] MED LIST changes: +DONNATAL 5ml ORAL Elix (BELLADONNA ALK-PHENOBARB) ONE; +DONNATAL 5ml ORAL Elix (BELLADONNA ALK-PHENOBARB) PO ONE; +LIDOCAINE VISCOUS 2% 15ML UD MT ONE; +LIDOCAINE VISCOUS 2% 15ML UD ONE; +MAALOX PLUS or MAALOX 30 ML ONE; +MAALOX PLUS or MAALOX 30 ML PO ONE; +PANT40TA2 PO; +cloNIDine HCL 0.1 MG TAB ONE; +cloNIDine HCL 0.1 MG TAB PO ONE
[2022-10-07 11:45] VITALS: BP 197/100
[2022-10-07 13:01] VITALS: BP 181/90
== END | disposition home or self-care (01) ==
LOC: CHF HDHVI 11:29
PROVIDERS: ATTEND Internal Medicine Cardiovascular Disease
DX: R10.9 Unspecified abdominal pain (principal)
CPT/HCPCS: G0463

== ENCOUNTER → 2022-10-26 | Outpatient (CLI) | payer MEDICARE, MEDICAID ==
[~2022-10-26] MED LIST changes: -DONNATAL 5ml ORAL Elix (BELLADONNA ALK-PHENOBARB) ONE; -DONNATAL 5ml ORAL Elix (BELLADONNA ALK-PHENOBARB) PO ONE; -LIDOCAINE VISCOUS 2% 15ML UD MT ONE; -LIDOCAINE VISCOUS 2% 15ML UD ONE; -MAALOX PLUS or MAALOX 30 ML ONE; -MAALOX PLUS or MAALOX 30 ML PO ONE; +READI-CAT 2 (BARIUM SULF)(VANILLA SMOOTHIE) 450ML ONE; -cloNIDine HCL 0.1 MG TAB ONE; -cloNIDine HCL 0.1 MG TAB PO ONE
== END | disposition home or self-care (01) ==
LOC: Rad HDHVI 10:47
PROVIDERS: ATTEND Internal Medicine Cardiovascular Disease
DX: N20.0 Calculus of kidney (principal); J98.4 Other disorders of lung; J98.11 Atelectasis; R91.8 Other nonspecific abnormal finding of lung field; R16.0 Hepatomegaly, not elsewhere classified; M47.816 Spondylosis without myelopathy or radiculopathy, lumbar region; R10.9 Unspecified abdominal pain; Z90.49 Acquired absence of other specified parts of digestive tract
CPT/HCPCS: 74176

== ENCOUNTER → 2023-03-23 | Outpatient (CLI) | payer MEDICARE, MEDICAID ==
[~2023-03-23] MED LIST changes: -READI-CAT 2 (BARIUM SULF)(VANILLA SMOOTHIE) 450ML ONE
[2023-03-23 14:20] LABS: Urine Bacteria MANY /hpf (None Seen); Urine Blood Negative /uL (Negative); Urine Clarity HAZY (Clear); Urine Color Yellow (Yellow); Urine Mucus FEW (None Seen); Urine Protein, UAD Negative (Negative); Urine Specific Gravity 1.023 (1.001-1.035); Urine Urobilinogen Normal (Negative); Urine WBC 23 /hpf (0 - 5); Urine pH 5.5 (5.0-8.0)
== END | disposition home or self-care (01) ==
LOC: LAB 14:04
PROVIDERS: ATTEND Internal Medicine Cardiovascular Disease
DX: N39.0 Urinary tract infection, site not specified (principal)
CPT/HCPCS: 81001; 87086

== ENCOUNTER → 2023-03-28 | Outpatient (CLI) | payer MEDICARE, MEDICAID | END | disposition home or self-care (01) | LOC: Rad HDHVI 08:02 | PROVIDERS: ATTEND Internal Medicine Cardiovascular Disease | DX: I08.3 Combined rheumatic disorders of mitral, aortic and tricuspid valves (principal); R00.2 Palpitations; I10 Essential (primary) hypertension | CPT/HCPCS: 93306 ==

== ENCOUNTER → 2023-04-17 | Outpatient (CLI) | payer MEDICARE, MEDICAID ==
[~2023-04-17] VITALS: Ht 162.6 cm; Wt 59.0 kg
[~2023-04-17] MED LIST changes: +D5W 5% IV SCH; +DIPYRIDAMOLE (5MG/ML) 10 ML VIAL IV ONE; +DIPYRIDAMOLE IV SCH
== END | disposition home or self-care (01) ==
LOC: Rad HDHVI 08:52
PROVIDERS: ATTEND Internal Medicine Cardiovascular Disease
DX: R06.02 Shortness of breath (principal); I10 Essential (primary) hypertension; E78.00 Pure hypercholesterolemia, unspecified
CPT/HCPCS: 78452; 93005; 96374; 96375; A9500; J1245

== ENCOUNTER → 2023-06-07 | Outpatient (CLI) | payer MEDICARE, MEDICAID ==
[~2023-06-07] MED LIST changes: -D5W 5% IV SCH; -DIPYRIDAMOLE (5MG/ML) 10 ML VIAL IV ONE; -DIPYRIDAMOLE IV SCH; +IODIXANOL 320MG/ML 100ML BTL IV ONE
[2023-06-07 11:48] VITALS: BP 153/86; PULSE 73; RESP 20; O2SAT 99
[2023-06-07 12:02] VITALS: BP 169/73; PULSE 65; RESP 20; O2SAT 99
== END | disposition home or self-care (01) ==
LOC: Rad HDHVI 11:35
PROVIDERS: ATTEND Internal Medicine Cardiovascular Disease
DX: K44.9 Diaphragmatic hernia without obstruction or gangrene (principal); N32.89 Other specified disorders of bladder; N39.0 Urinary tract infection, site not specified
CPT/HCPCS: 74177; G0463; Q9967

== ENCOUNTER → 2023-06-07 | Outpatient (CLI) | payer MEDICARE, MEDICAID ==
[~2023-06-07] MED LIST changes: -IODIXANOL 320MG/ML 100ML BTL IV ONE
[2023-06-07 16:20] LABS: Urine Blood Negative /uL (Negative); Urine Clarity Clear (Clear); Urine Color Colorless (Yellow); Urine Protein, UAD TRACE (Negative); Urine Specific Gravity > 1.050 (1.001-1.035); Urine Urobilinogen Normal (Negative)
== END | disposition home or self-care (01) ==
LOC: LAB 16:04
PROVIDERS: ATTEND Internal Medicine Cardiovascular Disease
DX: N39.0 Urinary tract infection, site not specified (principal)
CPT/HCPCS: 81003

== ENCOUNTER → 2023-09-13 | Outpatient (CLI) | payer MEDICARE, MEDICAID ==
[~2023-09-13] MED LIST changes: +READI-CAT 2 (BARIUM SULF)(VANILLA SMOOTHIE) 450ML ONE
== END | disposition home or self-care (01) ==
LOC: Rad HDHVI 14:53
PROVIDERS: ATTEND Internal Medicine Cardiovascular Disease
DX: K44.9 Diaphragmatic hernia without obstruction or gangrene (principal); K76.9 Liver disease, unspecified; K80.20 Calculus of gallbladder without cholecystitis without obstruction; R91.1 Solitary pulmonary nodule; J98.11 Atelectasis; R10.9 Unspecified abdominal pain; M25.422 Effusion, left elbow; M79.89 Other specified soft tissue disorders; N20.0 Calculus of kidney; M79.642 Pain in left hand; M25.512 Pain in left shoulder; M25.522 Pain in left elbow; Z98.82 Breast implant status; Z96.612 Presence of left artificial shoulder joint
CPT/HCPCS: 73130; 73200; 74176

== ENCOUNTER 2024-01-04 12:00 | Inpatient (IN) | payer MEDICARE, MEDICAID ==
[~2024-01-04] VITALS: Ht 162.6 cm; Wt 64.4 kg
[~2024-01-04 12:00] MED LIST changes: -READI-CAT 2 (BARIUM SULF)(VANILLA SMOOTHIE) 450ML ONE
[2024-01-04 14:55] LABS: Basophils # (auto) 0.1 10 ^3/uL (0-0.2); Basophils % (auto) 0.8 % (0.0-2.0); Eosinophils # (auto) 0.2 10 ^3/uL (0-0.8); Eosinophils % (auto) 2.7 % (0.0-7.0); Hematocrit 39.4 % (36.0-46.0); Hemoglobin 13.1 g/dL (12.2-16.2); Lymphocytes # (auto) 1.9 10 ^3/uL (0.4-5.4); Lymphocytes % (auto) 29.6 % (10.0-50.0); Mean Corpuscular Hemoglobin 31.5 pg (28.0-32.0); Mean Corpuscular Hgb Conc. 33.3 g/dL (32.0-36.0); Mean Corpuscular Volume 94.5 fL (80.0-100.0); Monocytes # (auto) 0.4 10 ^3/uL (0-1.3); Monocytes % (auto) 5.9 % (0.0-12.0); Neutrophils # (auto) 3.9 10 ^3/uL (1.6-8.6); Nucleated Red Blood Cells % 0.1 %; Platelet Count (auto) 272 10^3/uL (140-450); Red Blood Cells 4.17 10^6/uL (4.0-5.20); Red Cell Distribution Width 14.2 % (11.8-14.3); White Blood Cell 6.5 10^3/uL (4.4-10.8)
[2024-01-04 15:11] LABS: Alanine Aminotransferase 21 U/L (7-40); Albumin 4.7 g/dL (3.2-4.8); Alkaline Phosphatase 109 U/L (46-116); Anion Gap 7 (5-15); Aspartate Aminotransferase 24 U/L (13-40); Blood Urea Nitrogen 12 mg/dL (9-23); Calcium 10.8 mg/dL (8.7-10.4); Carbon Dioxide 24 mmol/L (20-31); Chloride 110 mmol/L (98-107); Glucose 70 mg/dL (74-106); Lipase 57 U/L (12-53); Potassium 3.8 mmol/L (3.5-5.1); Sodium 141 mmol/L (136-145)
[2024-01-04 15:12] LABS: Bilirubin, Total 0.3 mg/dL (0.2-1.0); Total Protein 7.8 g/dL (5.7-8.2)
[2024-01-05] VITALS (8 sets, daily range): BP systolic 109–153; BP diastolic 60–86; PULSE 57–77; RESP 16–18; TEMP 97.8–98.3; O2SAT 98–100
[2024-01-05 02:23] LABS: Phosphorus 2.7 mg/dL (2.4-5.1)
[2024-01-05 02:28] LABS: INR 0.93 (0.9-1.15); Partial Thromboplastin Time 26.7 SEC (24.5-34.5); Prothrombin Time 9.9 sec (9.3-11.8)
[2024-01-05] MEDS: LOSARTAN POTASSIUM 50 MG TAB PO ONE (05:44)
[2024-01-05] MEDS ORDERED: hydroCHLOROthiazide 25 MG TAB PO SCH (06:00)
[2024-01-05 06:08] LABS: Urine Amorphous Crystal FEW /hpf (None Seen); Urine Bacteria MOD /hpf (None Seen); Urine Blood Negative /uL (Negative); Urine Clarity Turbid (Clear); Urine Color Light-Yellow (Yellow); Urine Protein, UAD Negative (Negative); Urine Specific Gravity 1.019 (1.001-1.035); Urine Urobilinogen Normal (Negative); Urine WBC 23 /hpf (0 - 5)
[2024-01-05 06:13] LABS: Amphetamine Screen, Urine Neg (NEGATIVE); Barbiturate Scree,Urine Neg (NEGATIVE); Benzodiazephine Screen, Urine Pos (NEGATIVE); Cannabinoid Screen, Urine Neg (NEGATIVE); Cocaine Screen, Urine Neg (NEGATIVE); Opiate Scree,Urine Neg (NEGATIVE); Phencyclidine Screen, Urine Neg (NEGATIVE)
[2024-01-05] MEDS: cloNIDine HCL 0.1 MG TAB PO ONE (06:47)
[2024-01-05 08:43] LABS: Chloride 109 mmol/L (98-107); Potassium 3.5 mmol/L (3.5-5.1); Sodium 141 mmol/L (136-145)
[2024-01-05 08:44] LABS: Anion Gap 8 (5-15); Calcium 10.7 mg/dL (8.7-10.4); Carbon Dioxide 24 mmol/L (20-31)
[2024-01-05 08:46] LABS: Basophils # (auto) 0 10 ^3/uL (0-0.2); Basophils % (auto) 0.4 % (0.0-2.0); Eosinophils # (auto) 0.2 10 ^3/uL (0-0.8); Eosinophils % (auto) 2.6 % (0.0-7.0); Hematocrit 39.4 % (36.0-46.0); Hemoglobin 12.9 g/dL (12.2-16.2); Lymphocytes # (auto) 1.9 10 ^3/uL (0.4-5.4); Lymphocytes % (auto) 25.4 % (10.0-50.0); Mean Corpuscular Hemoglobin 31.9 pg (28.0-32.0); Mean Corpuscular Hgb Conc. 32.6 g/dL (32.0-36.0); Mean Corpuscular Volume 97.8 fL (80.0-100.0); Monocytes # (auto) 0.7 10 ^3/uL (0-1.3); Monocytes % (auto) 9.2 % (0.0-12.0); Neutrophils # (auto) 4.6 10 ^3/uL (1.6-8.6); Neutrophils % (auto) 62.4 % (37.0-80.0); Nucleated Red Blood Cells % 0.1 %; Platelet Count (auto) 239 10^3/uL (140-450); Red Blood Cells 4.03 10^6/uL (4.0-5.20); Red Cell Distribution Width 14.6 % (11.8-14.3); White Blood Cell 7.4 10^3/uL (4.4-10.8)
[2024-01-05 08:49] LABS: Glucose 83 mg/dL (74-106)
[2024-01-05 08:51] LABS: BUN/Creatinine Ratio 16.2 (10.0-20.0); Blood Urea Nitrogen 11 mg/dL (9-23)
[2024-01-05] MEDS: ENOXAPARIN SOD 40 MG/0.4 ML SYRINGE SC SCH (09:12)
[2024-01-05] MEDS: PANTOPRAZOLE 40 MG TAB PO SCH (09:12)
[2024-01-05] MEDS: cefTRIAXone 1GM/50ML D5W 50 ML IV SCH (09:31)
[2024-01-05 10:19] LABS: Free T3 3.39 pg/mL (2.3-4.2)
[2024-01-05 10:20] LABS: Free T4 (Free Thyroxine) 1.12 ng/dL (0.89-1.76)
[2024-01-05] MEDS ORDERED: ATEN-60 PO (12:42)
[2024-01-05] MEDS ORDERED: ALPR0.25 PO (12:42)
[2024-01-05] MEDS ORDERED: HYDR25TA5 PO (12:44)
[2024-01-05] MEDS ORDERED: METOCLOPRAMIDE HCL 5MG/ml INJ 2ml VIAL IV PRN (16:15)
[2024-01-05] MEDS: SODIUM CHLORIDE 0.9% 1,000 ML IV ONE (17:50)
[2024-01-06] VITALS (8 sets, daily range): BP systolic 123–179; BP diastolic 73–79; PULSE 63–87; RESP 16–20; TEMP 97.9–98.6; O2SAT 93–99
[2024-01-06] MEDS: ACETAMINOPHEN 500 MG TAB PO PRN (00:18)
[2024-01-06 01:30] LABS: COVID19 ANTIGEN SOFIA FIA NEGATIVE (NEGATIVE)
[2024-01-06] MEDS: LOSARTAN POTASSIUM 50 MG TAB PO SCH (10:19)
[2024-01-06] MEDS: hydrALAZINE HCL 10 MG TAB PO SCH (15:14)
[2024-01-07 01:00] VITALS: BP 130/67; PULSE 60; RESP 19; TEMP 98.2; O2SAT 96
[2024-01-07 05:00] VITALS: BP 133/68; PULSE 72; RESP 19; TEMP 98.3; O2SAT 98
[2024-01-07 08:00] VITALS: PULSE 51; PULSE 75; RESP 18; O2SAT 98
[2024-01-07 08:25] VITALS: BP 133/60; PULSE 58; RESP 16; TEMP 98.8; O2SAT 98
[2024-01-07] MEDS: LOSARTAN POTASSIUM 50 MG TAB PO SCH (08:52)
[2024-01-07 11:34] VITALS: BP 166/80; PULSE 76; RESP 19; TEMP 97.6; O2SAT 98
[2024-01-07] MEDS: hydrALAZINE HCL 20 MG/ML VL IV PRN (11:35)
[2024-01-07 12:34] VITALS: TEMP 97.8
[2024-01-07] MEDS ORDERED: LOSA-534 PO (14:21)
[2024-01-07] MEDS ORDERED: HYDR-2792 PO (14:21)
== END 2024-01-07 16:17 | disposition home or self-care (01) | DRG 73 ==
LOC: ER 12:11 → TELE 01-05 01:13 → TELE-EAST 01-05 11:25
PROVIDERS: ADMIT Internal Medicine; ATTEND Student in an Organized Health Care Education/Training Program
DX: G90.9 Disorder of the autonomic nervous system, unspecified (principal); G93.41 Metabolic encephalopathy; N30.00 Acute cystitis without hematuria; I16.0 Hypertensive urgency; E87.6 Hypokalemia; I44.7 Left bundle-branch block, unspecified; M10.9 Gout, unspecified; S41.111A Laceration without foreign body of right upper arm, initial encounter; Z96.612 Presence of left artificial shoulder joint; Z20.822 Contact with and (suspected) exposure to COVID-19; I95.1 Orthostatic hypotension; S59.901A Unspecified injury of right elbow, initial encounter; S09.90XA Unspecified injury of head, initial encounter; W18.39XA Other fall on same level, initial encounter; Z88.6 Allergy status to analgesic agent; Z88.0 Allergy status to penicillin; Z88.8 Allergy status to other drugs, medicaments and biological substances; Z90.49 Acquired absence of other specified parts of digestive tract; Z90.710 Acquired absence of both cervix and uterus; Z79.899 Other long term (current) drug therapy; Y93.89 Activity, other specified; Y92.89 Other specified places as the place of occurrence of the external cause; Y99.8 Other external cause status
CPT/HCPCS: 36415; 70450; 71045; 73080; 80048; 80053; 80307; 80320; 81001; 82306; 82550; 82607; 83036; 83605; 83690; 83735; 83880; 84100; 84439; 84443; 84481; 84484; 84550; 85025; 85610; 85730; 87086; 87088; 87186; 87426; 92610; 93005; 93306; 93886; 93970; 97110; 97116; 97163; 97530; G0378

== ENCOUNTER → 2024-04-23 | Outpatient (CLI) | payer MEDICARE, MEDICAID ==
[~2024-04-23] MED LIST changes: -ATEN-60 PO; +HYDR-2792 PO; -HYDR25TA4 PO; +LOSA-534 PO; -PANT40TA2 PO; +REGADENOSON 0.4 MG/5 ML SYRG IV ONE; -ZOLP5TAB PO
[2024-04-23] MEDS: REGADENOSON 0.4 MG/5 ML SYRG IV ONE (13:50)
--- NOTE | 2024-04-24 09:03 | DVHSR ---
APPROVED REPORT Exam: Nuclear Stress Test Indication: Cardicat Clearance Stress Tech: Harriet Smart Ht: 5 ft 4 in Wt: 138 lbs BSA: 1.67 m2 HR: 65 bpm BP: 183/102 mmHg BMI: 23.68 Rhythm: See Baseline Medical History Medical History: HLD, Masectomy, HTN, IBS, Ef 50% Allergies: PCN, Adhesive Tape Stress Test Details Stress Test: Pharmacologic stress testing performed using 0.4 mg of regadenoson per 5 mL given IV ov er 10 seconds. Reason for pharmacologic stress test: Cardiac Clearance. HR Resting HR: 65 bpmMax Heart Rate (APMHR): 141.812266 bpm Max HR Achieved: 106 bpmTarget HR (85% APMHR): 119.335830 bpm % of APMHR: 75.18 Recovery HR: 82 bpm BP Resting BP: 183/102 mmHg Recovery BP: 172/89 mmHg ECG Resting ECG: See Baseline Clinical Reason for Termination: Completed protocol Stress ECG Conclusion Review of the myocardial perfusion images during stress demonstrated a moderate-sized area of mild in tensity reduced radiotracer uptake in the mid and distal anteroseptal wall. This appears to be more intense during resting images. Otherwise, there is homogeneous radiotracer uptake throughout the res t of the left ventricular myocardium during stress. Left ventricular volumes are normal. Ejection f raction is normal and is estimated at 77%. No gated images are available to assess for wall motion a bnormalities. Impressions: 1. Low risk myocardial perfusion scan. 2. Fixed mild defect in the mid and distal anteroseptal wall which could represent artifact and less likely prior infarct. 3. Normal left ventricular systolic function. NM EXAM: Myocardial Perfusion REST/STRESS Imaging Protocol: Rest Tc-99m/Stress Tc-99m 1 day Resting Data Rest SPECT myocardial perfusion imaging was performed in supine position 60 minutes following the int ravenous injection of 10.5 mCi of Tc-99m Sestamibi. Time of rest injection: 1230 Time of rest imagin Administration Route: IV Administration Site: Right Hand Pharmacologic Stress Pharmacologic stress test was performed by injecting Regadenoson 0.4 mg IV push followed by the intra venous injection of 28.7 mCi of Tc-99m Sestamibi. Time of stress injection: 1345 Time of stress imagin Administration Route: IV Administration Site: Right Hand Gated Stress SPECT was performed 45 minutes after stress injection. The images were gated to evaluate regional wall motion and calculate left ventricular ejection fracti on. Nuclear Conclusion ECG Findings: non-diagnostic Clinical Findings: negative for ischemia Nuclear Findings: negative for ischemia Exercise Capacity: not assessed Left Ventricular Function: normal Risk Study: low Review of the myocardial perfusion images during stress demonstrated a moderate-sized area of mild in tensity reduced radiotracer uptake in the mid and distal anteroseptal wall. This appears to be more intense during resting images. Otherwise, there is homogeneous radiotracer uptake throughout the res t of the left ventricular myocardium during stress. Left ventricular volumes are normal. Ejection f raction is normal and is estimated at 77%. No gated images are available to assess for wall motion a bnormalities. Impressions: 1. Low risk myocardial perfusion scan. 2. Fixed mild defect in the mid and distal anteroseptal wall which could represent artifact and less likely prior infarct. 3. Normal left ventricular systolic function.
== END | disposition home or self-care (01) ==
LOC: XYW 11:27
PROVIDERS: ATTEND Internal Medicine
DX: Z01.810 Encounter for preprocedural cardiovascular examination (principal); K58.9 Irritable bowel syndrome, unspecified; I10 Essential (primary) hypertension; E78.5 Hyperlipidemia, unspecified
CPT/HCPCS: 78452; 93017; A9500; J2785

== ENCOUNTER 2024-05-05 20:45 | Emergency (ER) | payer MEDICARE, MEDICAID ==
[~2024-05-05] VITALS: Ht 157.5 cm; Wt 63.0 kg
[~2024-05-05 20:45] MED LIST changes: -REGADENOSON 0.4 MG/5 ML SYRG IV ONE
[2024-05-05 22:17] LABS: Basophils # (auto) 0 10 ^3/uL (0-0.2); Basophils % (auto) 0.4 % (0.0-2.0); Eosinophils # (auto) 0 10 ^3/uL (0-0.8); Eosinophils % (auto) 0.5 % (0.0-7.0); Hematocrit 38.3 % (36.0-46.0); Lymphocytes # (auto) 1.4 10 ^3/uL (0.4-5.4); Mean Corpuscular Hemoglobin 31.6 pg (28.0-32.0); Mean Corpuscular Hgb Conc. 33.8 g/dL (32.0-36.0); Mean Corpuscular Volume 93.5 fL (80.0-100.0); Monocytes # (auto) 0.4 10 ^3/uL (0-1.3); Monocytes % (auto) 6.6 % (0.0-12.0); Neutrophils # (auto) 4.1 10 ^3/uL (1.6-8.6); Neutrophils % (auto) 68.5 % (37.0-80.0); Platelet Count (auto) 273 10^3/uL (140-450); Red Cell Distribution Width 13.3 % (11.8-14.3)
--- NOTE | 2024-05-05 22:27 | ED.PDOC ---
History of Present Illness HPI Comments 78 y/o F, with a Hx of gout, HTN, UTI's, appendectomy, cholecystectomy, hernia repair, and hysterectomy, is BIBA for c/o lower abdominal pain and distension and lower back pain, today. Per EMS report, patient endorses on unprovoked onset of pain to her abdomen and back, last night, yesterday, and abdominal distension that has been ongoing for 2x weeks. Patient comments on pain being a 10/10 in severity, initially, and having it ongoing, intermittently, for the past 7x months, with no resolution underlying cause found amidst outpatient specialist consultation and visits. EMS staff notes on patient having a blood glucose of 119 and her vitals stable and within normal limits and giving 100ug Fentanyl en route, with pain improving to a 4/10. Patient denies having any nausea, vomiting, diarrhea, urinary symptoms, fever, chills, or other associated symptoms or modifiers at this time. Chief Complaint: Abdominal Pain Time Seen by MD: 21:10 Primary Care Provider: IVETTE Reviewed Notes: Nurses Notes, [employer] Associate Notes, Medications, Allergies Allergies: Coded Allergies: Penicillins (Verified Allergy, Severe, CONVULSIONS, 07/23/19) Aspirin (Verified Allergy, Unknown, VOMITTING, 07/23/19) Procaine (Verified Allergy, Unknown, 07/23/19) Dicyclomine (Verified Adverse Reaction, Unknown, 01/05/24) SEVERE DIZZINESS, PASSING OUT, HALLUCINATIONS Uncoded Allergies: TAPE (Adverse Reaction, Unknown, RASH, 01/05/24) ADHESIVE TAPE Home Meds Active Scripts Simethicone (EQ GAS RELIEF) 125 Mg Cap, 125 MG OR TIDWM for 3 Days, #9 CAP Prov:VENUS BOND MD 05/06/24 Losartan Potassium (Losartan Potassium) 50 Mg Tab, 100 MG PO DAILY for 60 Days, #120 TAB Prov:DK TURPIN MD 01/07/24 Hydralazine Hcl (Hydralazine Hcl) 10 Mg Tab, 10 MG PO QPM for 60 Days, #60 TAB Prov:DK TURPIN MD 01/07/24 Reported Medications Alprazolam (Xanax) 0.25 Mg Tb, 1 TAB PO HS, #30 TAB 01/05/24 Ibuprofen (Ibuprofen) 800 Mg Tab, 800 MG PO TIDP PRN for MODERATE PAIN (4-6 PAIN SCALE), MG 07/23/19 Information Source: Patient, Emergency Med Personnel Mode of Arrival: Ambulatory Severity: Moderate Timing: Days Duration: Intermittent Prehospital treatment: 12 Lead EKG, Accucheck, Divisional Human Resources Director Review of Systems: REVIEW OF SYSTEMS: No fever, no chills, or fatigue HEENT: No sore throat, no earache, no congestion, no neck pain. Cardiac: No chest pain. No palpitations. Lungs: No shortness of breath, no cough. GI: Abdominal pain and distension, no nausea, no vomiting, no diarrhea, no constipation : No dysuria, frequency, or urgency. No hematuria. Musculoskeletal: Back pain, no joint pain , no joint swelling, no extremity edema. Skin: No rash, no itching. Neuro: No headache, no dizziness, no weakness Vital Signs Vital Signs Date Time Temp Pulse Resp B/P (MAP) Pulse Ox O2 Delivery O2 Flow Rate FiO2 05/06/24 01:10 75 14 150/93 (112) 96 05/06/24 00:30 98.8 98.8 05/05/24 23:46 Room Air Physical Exam General: Awake, alert and oriented. No acute distress. Appears anxious Skin: Skin in warm, dry and intact. Appropriate color for ethnicity. HEENT: The head is normocephalic and atraumatic. Conjunctivae are clear without exudates or hemorrhage. Sclera is non-icteric. EOM are intact. No signs of nystagmus. Eyelids are normal in appearance without swelling or lesions. Oral mucosa is pink and moist Neck: The neck is supple with normal range of motion. No JVD. Cardiac: Heart rate and rhythm are normal. No murmurs, gallops, or rubs are auscultated. Respiratory: No signs of respiratory distress. Lung sounds are clear in all lobes bilaterally without rales, rhonchi, or wheezes. Abdominal: Abdomen is soft, but with LLQ tenderness and generalized distention noted. Bowel sounds are present and normoactive in all four quadrants. Extremities: Upper and lower extremities are atraumatic in appearance without deformity or edema. Neurological: The patient is awake, alert and oriented to person, place, and time with normal speech. Speech is clear. There is no facial asymmetry. Psychiatric: Appropriate mood and affect. Good judgement and insight. No visual or auditory hallucinations. Past Medical History PAST MEDICAL HISTORY: Gout, HTN, UTI'S Surgical History: Appendectomy, Cholecystectomy, Hernia Repair, Hysterectomy OLEOMARGARINE MAKER History: No Pertinent OLEOMARGARINE MAKER History Family History Family History: Unknown Social History Smoker: Non-Smoker Alcohol: Rarely Drugs: Denies Drug Use Lives In: Home Was a procedure done? Was a procedure done?: No Differential Dx Considerations may include: PID, diverticulitis, ovarian cysts, ovarian torsion, spoiled food, musculoskeletal pain, nephrolithiasis, acute abdomen, UTI's, viral syndrome X-Ray, Labs, Meds, VS Vital Signs Date Time Temp Pulse Resp B/P (MAP) Pulse Ox O2 Delivery O2 Flow Rate FiO2 05/06/24 01:10 75 14 150/93 (112) 96 05/06/24 00:30 98.8 72 16 140/68 (92) 96 98.8 05/06/24 00:29 72 16 140/68 05/06/24 00:10 96 20 190/85 05/05/24 23:46 96 20 98 Room Air 05/05/24 23:46 98.5 96 20 190/85 (120) 98 98.5 05/05/24 21:04 79 05/05/24 20:45 98.7 87 18 170/96 (120) 98 Lab Test 05/05/24 23:17 05/05/24 22:02 Range/Units Urine Color Light-yellow Yellow Urine Clarity Clear Clear Urine pH 6.0 5.0-9.0 Urine Specific [place] 1.015 1.001-1.035 Urine Protein Negative Negative Urine Ketones Trace Negative Urine Blood Negative Negative /uL Urine Nitrite Negative Negative Urine Bilirubin Negative Negative Urine Urobilinogen Normal Negative mg/dL Urine Leukocyte Esterase Negative Negative /uL Urine RBC 1 0 - 4 /hpf Urine Microscopic WBC 1 0-5 /HPF Urine Squamous Epithelial Cells Mod <5 /hpf Urine Bacteria Few H None Seen /hpf Urine Mucus Few None Seen Urine Glucose Normal Normal mg/dL White Blood Count 6.0 4.4-10.8 10^3/uL Red Blood Count 4.10 4.0-5.20 10^6/uL Hemoglobin 13.0 12.2-16.2 g/dL Hematocrit 38.3 36.0-46.0 % Mean Corpuscular Volume 93.5 80.0-100.0 fL Mean Corpuscular Hemoglobin 31.6 28.0-32.0 pg Mean Corpuscular Hemoglobin Concent 33.8 32.0-36.0 g/dL Red Cell Distribution Width 13.3 11.8-14.3 % Platelet Count 273 140-450 10^3/uL Mean Platelet Volume 8.5 6.9-10.8 fL Neutrophils (%) (Auto) 68.5 37.0-80.0 % Lymphocytes (%) (Auto) 24.0 10.0-50.0 % Monocytes (%) (Auto) 6.6 0.0-12.0 % Eosinophils (%) (Auto) 0.5 0.0-7.0 % Basophils (%) (Auto) 0.4 0.0-2.0 % Neutrophils # (Auto) 4.1 1.6-8.6 10 ^3/uL Lymphocytes # (Auto) 1.4 0.4-5.4 10 ^3/uL Monocytes # (Auto) 0.4 0-1.3 10 ^3/uL Eosinophils # (Auto) 0 0-0.8 10 ^3/uL Basophils # (Auto) 0 0-0.2 10 ^3/uL Nucleated Red Blood Cells 0.0 % Sodium Level 142 136-145 mmol/L Potassium Level 2.9 L 3.5-5.1 mmol/L Chloride Level 105 98-107 mmol/L Carbon Dioxide Level 27 20-31 mmol/L Anion Gap 10 5-15 Blood Urea Nitrogen 16 9-23 mg/dL Creatinine 0.88 0.550-1.02 mg/dL Glomerular Filtration Rate Calc 67 >90 mL/min BUN/Creatinine Ratio 18.2 10.0-20.0 Serum Glucose 97 74-106 mg/dL Lactic Acid Level 1.1 0.4-2.0 mmol/L Calcium Level 10.8 H 8.7-10.4 mg/dL Total Bilirubin 0.5 0.2-1.0 mg/dL Aspartate Amino Transferase (AST) 25 13-40 U/L Alanine Aminotransferase (ALT) 26 7-40 U/L Alkaline Phosphatase 86 46-116 U/L Total Protein 7.2 5.7-8.2 g/dL Albumin 4.6 3.2-4.8 g/dL Current Medications Medications (Trade) Dose Ordered Sig/Jose Route Start Time Stop Time Status Last Admin Morphine Sulfate 2 mg ONCE ONCE IV 05/06/24 00:00 05/06/24 00:01 DC 05/06/24 00:10 Ondansetron HCl (Zofran) 4 mg ONCE ONCE IV 05/06/24 00:00 05/06/24 00:01 DC 05/06/24 00:10 Time of 1ST Reevaluation: 21:40 Reevaluation 1ST: Unchanged Patient Education/Counseling: Diagnosis, Treatment Family Education/Counseling: No Family Present Departure 1 Departure Time of Disposition: 00:51 Impression: Primary Impression: Acute abdominal pain Disposition: HOME / SELF CARE / HOMELESS Condition: Stable Additional Instructions: ED DISCHARGE INSTRUCTIONS Instructions: Please read all instructions provided in this packet carefully. Although you have been discharged from the Emergency Department, this does not mean that you have a "clean bill of health". No definitive diagnosis for your symptoms has been made today. It is possible that you are in the process of developing a serious illness. This is why you must return to the ED without fail if any new or worsening symptoms (especially if your symptoms include chest pain, trouble breathing, abdominal pain, fever, headache, confusion, trouble seeing, or trouble walking) It is also very important that you see a primary care doctor within the next 3-5 days to follow up. If you are unable to get an appointment, return to the ED for re-evaluation. Abdominal Pain: Care Instructions Overview Abdominal pain has many possible causes. Some aren't serious and get better on their own in a few days. Others need more testing and treatment. If your pain continues or gets worse, you need to be rechecked and may need more tests to find out what is wrong. You may need surgery to correct the problem. Don't ignore new symptoms, such as fever, nausea and vomiting, urination problems, pain that gets worse, and dizziness. These may be signs of a more serious problem. If you are not getting better, you may need more tests or treatment. The doctor has checked you carefully, but problems can develop later. If you notice any problems or new symptoms, get medical treatment right away. Follow-up care is a chanel part of your treatment and safety. Be sure to make and go to all appointments, and call your doctor if you are having problems. It's also a good idea to know your test results and keep a list of the medicines you take. How can you care for yourself at home? Rest until you feel better. To prevent dehydration, drink plenty of fluids. Choose water and other clear liquids until you feel better. If you have kidney, heart, or liver disease and have to limit fluids, talk with your doctor before you increase the amount of fluids you drink. When you feel like eating, start with small amounts. Do not have alcohol, caffeine, or spicy, hot, or high-fat foods for a day or two. Avoid anti-inflammatory medicines such as aspirin, ibuprofen (Advil, Motrin), and naproxen (Aleve). These can cause stomach upset. Talk to your doctor if you take daily aspirin for another health problem. When should you call for help? Call 911 anytime you think you may need emergency care. For example, call if: You passed out (lost consciousness). You pass maroon or very bloody stools. You vomit blood or what looks like coffee grounds. You have severe belly pain. Call your doctor now or seek immediate medical care if: Your pain gets worse, especially if it becomes focused in one area of your belly. You have a new or higher fever. Your stools are black and look like tar, or they have streaks of blood. You have unexpected vaginal bleeding. You have symptoms of a urinary tract infection. These may include: Pain when you urinate. Urinating more often than usual. Blood in your urine. You are dizzy or lightheaded, or you feel like you may faint. Watch closely for changes in your health, and be sure to contact your doctor if: You are not getting better as expected. Credits for Abdominal Pain: Care Instructions Current as of: January 12, 2023 Author: [employer] Staff Clinical Review Board All [employer] education is reviewed by a team that includes physicians, nurses, advanced practitioners, registered dieticians, and other healthcare professionals. e-Prescriptions Simethicone (EQ GAS RELIEF) 125 Mg Cap 125 MG OR TIDWM for 3 Days, #9 CAP Prov: VENUS BOND MD 05/06/24 Comments 78-year-old presented with 7 months of intermittent abdominal pain abdominal pain. No peritoneal signs on abdominal exam. Her abdomen was distended with moderate bowel gas on CT. No evidence of acute abdomen at this time. patient is well appearing. Labs show no leukocytosis or elevates of LFTs. Imaging [ ] Patie nt is afebrile. Patient is not hypotensive. Low suspicion for acute hepatobiliary disease (including acute cholecystitis, acute pancreatitis, PUD (including perforation), acute infectious process (pneumonia, hepatitis, pyelonephritis), acute appendicitis, vascular catastrophe, bowel obstructions, viscous perforatio. Presentation not consistent with other acute, emergent causes of abdominal pain at this time. Critical Care Note Critical Care Time?: No Stability Stability form required: No Heart Score Heart Score: Heart Score Response (Comments) Value History N/A 0 EKG N/A 0 Age N/A 0 Risk Factors N/A 0 Troponin N/A 0 Total 0 I personally scribed for VENUS BOND MD ([email or web address]) on 05/05/24 at 22:27. Electronically submitted by Laureano Lovett ([email or web address]). VENUS BOND MD May 05, 2024 22:27
[2024-05-05 22:28] LABS: Alanine Aminotransferase 26 U/L (7-40); Albumin 4.6 g/dL (3.2-4.8); Alkaline Phosphatase 86 U/L (46-116); Anion Gap 10 (5-15); Aspartate Aminotransferase 25 U/L (13-40); BUN/Creatinine Ratio 18.2 (10.0-20.0); Bilirubin, Total 0.5 mg/dL (0.2-1.0); Blood Urea Nitrogen 16 mg/dL (9-23); Carbon Dioxide 27 mmol/L (20-31); Chloride 105 mmol/L (98-107); Glucose 97 mg/dL (74-106); Sodium 142 mmol/L (136-145); Total Protein 7.2 g/dL (5.7-8.2)
[2024-05-05 22:35] LABS: Calcium 10.8 mg/dL (8.7-10.4); Potassium 2.9 mmol/L (3.5-5.1)
[2024-05-05] MEDS: IOHEXOL 300 MG/ML 100ML BOTTLE IJ ONE (23:07)
[2024-05-06 00:01] LABS: Urine Bacteria FEW /hpf (None Seen); Urine Blood Negative /uL (Negative); Urine Clarity Clear (Clear); Urine Color Light-Yellow (Yellow); Urine Mucus FEW (None Seen); Urine Protein, UAD Negative (Negative); Urine Specific Gravity 1.015 (1.001-1.035); Urine Squamous Epithelial Cell MOD /hpf (<5); Urine Urobilinogen Normal (Negative); Urine WBC 1 /HPF (0-5)
[2024-05-06] MEDS: ONDANSETRON HCL 4 MG/2 ML VIAL IV ONE (00:10)
[2024-05-06] MEDS: MORPHINE SULFATE INJ 2 MG/ml SYRG IV ONE (00:10)
--- NOTE | 2024-05-06 00:14 | DVH ---
Exam: CT CT AB PEL WITH IV CON ONLY History: Left lower quadrant pain, abdominal distention COMPARISON: CT CT AB PEL WITH ORAL CON ONLY on DOS: 09/13/23, CT CT AB PEL WITH IV CON ONLY on DOS: , CT CT AB PEL WITH ORAL CON ONLY on DOS: 10/26/22 Technique: Multidetector spiral CT of the abdomen and pelvis was performed from lung bases to pubic s ymphysis. Intravenous contrast was administered during this examination. Portal venous imaging was obtained. Axial, coronal and sagittal multiplanar reformats were performed by the technologist on a separate workstation. Radiation Dose : 1. Abdomen/Pelvis: CTDIvol [CTDIvol]mGy, DLP 443.32 mGy*cm. CONTRAST: Type of contrast: Contrast injected: ml Contrast ingested: ml Findings: Lung Bases: No abnormality demonstrated. Liver: Liver is normal in size. Few small round subcentimeter low-density lesions noted, most in keep ing with cysts. Gallbladder and biliary Tree: Unremarkable. Spleen: No abnormality demonstrated. Pancreas: No abnormality demonstrated. Adrenal Glands: No abnormality demonstrated. Kidneys: Small 2-3 mm nonobstructing calculus in the lower pole of the right kidney. Otherwise unrema rkable. No hydroureteronephrosis. Bladder: Non distended. Bowel: Small hiatal hernia. Stomach appears grossly unremarkable. No dilated or thick-walled loops of large or small bowel noted. Appendix not visualized. Ascites: Absent Lymphadenopathy: No evidence of lymphadenopathy. Abdominal wall and Mesentery: Unremarkable. Vasculature: Unremarkable. Pelvic Organs: Unremarkable. Musculoskeletal: No aggressive bony lesions or fracture. S/p posterior instrumented fusion from L2 t o L5 with bilateral vertical rods, pedicle screws, and interbody fusion devices. IMPRESSION: 1. No acute abdominal or pelvic finding. Radiation optimization: All CT scans at this facility use at least one of these dose optimization sarah hniques: Automated exposure control mA and/or kV adjustment per patient size (includes targeted exams where dose is matched to clinical indication) or iterative reconstruction.
[2024-05-06 00:30] VITALS: TEMP 98.8
[2024-05-06] MEDS ORDERED: [UNRECOGNIZED DRUG - CODE] OR (00:53)
[2024-05-06 01:10] VITALS: BP 150/93; PULSE 75; RESP 14; O2SAT 96
[2024-05-06] MEDS: SIMETHICONE 80 MG CHEWABLE TABLET PO ONE (01:13)
--- NOTE | 2024-05-06 11:49 | ECG ---
[facility] Test Date: 2024-05-05 Test Time: 21:04:31 Pat Name: DEMETRI IRBY Department: ER Room: Gender: F Insurance Claims Examiner: : [id number] Requested By: VENUS BOND Order Number: [id number] Reading MD: Quentin Ovalles Measurements Intervals [place] Rate: 79 P: 76 NM: 183 QRS: -70 QRSD: 138 T: 96 QT: 424 QTc: 487 Interpretive Statements Sinus rhythm Nonspecific IVCD with LAD LVH with secondary repolarization abnormality Anterior Q waves, possibly due to LVH Electronically Signed On 05-09-2024 10:36:00 PST by Quentin Ovalles Please click the below link to view image of tracing.
== END 2024-05-06 01:27 | disposition home or self-care (01) ==
LOC: EDBD 20:45 → EDUNIT# 20:45 → ER 20:45
DX: R10.32 Left lower quadrant pain (principal); M10.9 Gout, unspecified; M54.50 Low back pain, unspecified; I10 Essential (primary) hypertension; R14.0 Abdominal distension (gaseous); Z90.49 Acquired absence of other specified parts of digestive tract; Z90.710 Acquired absence of both cervix and uterus; Z98.890 Other specified postprocedural states; Z88.0 Allergy status to penicillin; Z88.6 Allergy status to analgesic agent; Z79.82 Long term (current) use of aspirin; Z88.8 Allergy status to other drugs, medicaments and biological substances
CPT/HCPCS: 36415; 74177; 80053; 81001; 83605; 85025; 93005; 96374; 96375; 99285; J2270; J2405; Q9967

== ENCOUNTER 2024-07-25 16:58 | Inpatient (IN) | payer MEDICARE, MEDICAID ==
[~2024-07-25] VITALS: Ht 162.6 cm; Wt 66.4 kg
[~2024-07-25 16:58] MED LIST changes: +[UNRECOGNIZED DRUG - CODE] OR
[2024-07-25 17:00] VITALS: BP 166/99; PULSE 70; RESP 16; TEMP 98.1; O2SAT 96
[2024-07-25 17:24] VITALS: BP 166/99; PULSE 70; RESP 16; RESP 17; TEMP 98.1; O2SAT 96
[2024-07-25 20:00] VITALS: RESP 18; O2SAT 95
[2024-07-25 21:00] VITALS: BP 182/91; PULSE 72; RESP 18; TEMP 97.8; O2SAT 99
[2024-07-26] VITALS (8 sets, daily range): BP systolic 135–166; BP diastolic 75–101; PULSE 63–106; RESP 17–20; TEMP 97.6–98.8; O2SAT 95–99
[2024-07-26] MEDS: ACETAMINOPHEN 325 MG TAB PO PRN (00:20)
[2024-07-26] MEDS: ALPRAZolam 0.25 MG TAB PO SCH (01:15)
[2024-07-26] MEDS: hydroCHLOROthiazide 25 MG TAB PO SCH (01:15)
[2024-07-26] MEDS: ALPRAZolam 0.5 MG TAB ONE (01:29)
[2024-07-26] MEDS: hydroCHLOROthiazide 25 MG TAB ONE (01:39)
--- NOTE | 2024-07-26 02:17 | DVHHP2 ---
History of Present Illness Reason for Visit: Abdominal distention History of Present Illness The patient is a 78-year-old female with past medical history of hypertension, UTIs, and gout who presented to [facility] ED transferred from Dr. Ovalles's office for evaluation of abdominal distention and lower back pain. Moe rogers reports new onset of abdominal pain, back pain, rating 8/10 numeric scale, getting worse today. Patient was seen and evaluated in the ED, blood pressure 166/99, heart rate 82, temperature 97.9 F, O2 saturation 97% on room air. Patient was given [place] 5/325 mg p.o. x1, please see medication orders section in the computer. On my assessment, patient denied chest pain, no head ache, no dizziness, no diaphoresis, no shortness of breath, no nausea, no vomiting, no fever, no chills. Patient was admitted for further evaluation and medical management. Past Medical History Gout, HTN, UTI'S Past Surgical History Appendectomy, Cholecystectomy, Hernia Repair, Hysterectomy Family History Reviewed, noncontributory to the management of this case. Past Social History The patient lives at home, denies smoking, alcohol or illicit drugs abuse. Review of Systems Constitutional: No: Fever, Chills, Sweats, Weakness, Malaise, Other Eyes: No: Pain, Vision change, Conjunctivae inflammation, Eyelid inflammation, Other, Redness ENT: No: Ear pain, Ear discharge, Nose pain, Nose discharge, Nose congestion, Mouth pain, Mouth swelling, Throat pain, Throat swelling, Other Respiratory: No: Cough, Dry, Shortness of breath, SOB with excertion, Wheezing, Hemoptysis, Pleuritic Pain, Sputum, Wheezing, Other Cardiovascular: No: Chest Pain, Palpitations, Orthopnea, Paroxysmal Noc. Dyspnea, Edema, Lt Headedness, Other Gastrointestinal: Abdominal Pain, Other (Abdominal distention); No: Nausea, Vomiting, Diarrhea, Constipation, Melena, Hematochezia Genitourinary: No Dysuria, No Frequency, No Incontinence, No Hematuria, No Retention, No Other Musculoskeletal: No: other, neck pain, shoulder pain, arm pain, back pain, hand pain, leg pain, foot pain Skin: No: Rash, Lesions, Jaundice, Bruising, Other Neurological: No: Weakness, Numbness, Incoordination, Change in speech, Confusion, Seizures, Other Allergies: Coded Allergies: Penicillins (Verified Allergy, Severe, CONVULSIONS, 07/23/19) Aspirin (Verified Allergy, Unknown, VOMITTING, 07/23/19) Procaine (Verified Allergy, Unknown, 07/23/19) Dicyclomine (Verified Adverse Reaction, Unknown, 01/05/24) SEVERE DIZZINESS, PASSING OUT, HALLUCINATIONS Uncoded Allergies: TAPE (Adverse Reaction, Unknown, RASH, 01/05/24) ADHESIVE TAPE Medications Current Medications Medications Dose Ordered Sig/Jose Route Start Time Stop Time Status Last Admin Dose Admin Acetaminophen 650 mg Q6HP PRN PO 07/26/24 00:00 07/26/24 00:20 650 MG Hydrochlorothiazide 25 mg HS PO 07/26/24 22:00 Alprazolam 0.25 mg HS PO 07/26/24 22:00 Exam Vital Signs Vital Signs Date Time Temp Pulse Resp B/P (MAP) Pulse Ox O2 Delivery O2 Flow Rate FiO2 07/26/24 01:39 166/99 07/26/24 01:00 97.9 82 18 97 97.9 07/25/24 17:24 Room Air* 0 21 General Appearance: Alert, Oriented X3, Cooperative, No acute distress HEENT: Atraumatic, PERRLA, EOMI, Mucous membr. moist/pink Respiratory: Clear to auscultation, Normal air movement Cardiovascular: Regular rate, Normal S1, Normal S2, No murmurs Abdominal: Normal bowel sounds, Soft, No hepatospenomegaly, No masses, Other (Reports tenderness) Extremities: No clubbing, No cyanosis, No edema, Normal pulses, No tenderness/swelling Skin: No rashes, No breakdown, No significant lesion Neuro: Normal gait, Normal speech, Strength at 5/5 X4 ext, Normal tone, Sensation intact, Cranial nerves 3-12 NL, Reflexes 2+ Psych/Mental Status: Mental status NL, Mood NL Labs/Xrays Lab results pending Assessment/Plan Assessment/Plan Abdominal distention Acute abdominal Plan 1. Admit to med surge unit 2. Breathing treatment 3. Pain control management 4. Management of fluids and electrolytes 5. Consultation for hospitalist 6. Diagnostic tests chest x-ray 7. DVT prophylaxis-on SCDs 8. Repeat labs CBC, CMP in a.m. 9. Continue with current medical management 10. Treatment plan discussed with patient and RN. Patient verbalized understanding. Plan discussed with: Patient, Other (RN) My Orders Orders - AILYN CHO DNP Procedure Category Date Status Time Admit ADMIT 07/25/24 Transmitted 23:54 Full Liq Diet DIET 07/26/24 Transmitted Breakfast Acetaminophen Tablet PHA 07/26/24 In Process (Tylenol Tablet) 00:00 Hydrochlorothiazide PHA 07/26/24 In Process Tablet (Hydrochlorot 22:00 Alprazolam Tablet PHA 07/26/24 In Process (Xanax Tablet) 22:00 Problem List: (1) Abdominal distention (2) Acute abdominal pain Date of Service: July 26, 2024 Billing Provider: AILYN CHO DNP Common Visit Codes: [id number] INP/OBS CARE (HIGH) AILYN CHO DNP July 26, 2024 02:17
[2024-07-26] MEDS ORDERED: hydrALAZINE HCL 20 MG/ML VL IV PRN (02:30)
[2024-07-26] MEDS: HYDROcodone-ACET 5/325MG TAB PO PRN (04:49)
[2024-07-26 06:15] LABS: Basophils # (auto) 0.1 10 ^3/uL (0-0.2); Eosinophils # (auto) 0.1 10 ^3/uL (0-0.8); Eosinophils % (auto) 1.7 % (0.0-7.0); Hematocrit 36.5 % (36.0-46.0); Hemoglobin 12.2 g/dL (12.2-16.2); Lymphocytes # (auto) 1.9 10 ^3/uL (0.4-5.4); Lymphocytes % (auto) 30.2 % (10.0-50.0); Mean Corpuscular Hemoglobin 31.1 pg (28.0-32.0); Mean Corpuscular Hgb Conc. 33.5 g/dL (32.0-36.0); Mean Corpuscular Volume 92.9 fL (80.0-100.0); Monocytes # (auto) 0.3 10 ^3/uL (0-1.3); Monocytes % (auto) 5.4 % (0.0-12.0); Neutrophils # (auto) 3.9 10 ^3/uL (1.6-8.6); Neutrophils % (auto) 61.7 % (37.0-80.0); Nucleated Red Blood Cells % 0.1 %; Platelet Count (auto) 224 10^3/uL (140-450); Red Blood Cells 3.92 10^6/uL (4.0-5.20); Red Cell Distribution Width 13.6 % (11.8-14.3); White Blood Cell 6.4 10^3/uL (4.4-10.8)
[2024-07-26 06:36] LABS: Alanine Aminotransferase 17 U/L (7-40); Albumin 3.9 g/dL (3.2-4.8); Alkaline Phosphatase 76 U/L (46-116); Anion Gap 9 (5-15); Aspartate Aminotransferase 14 U/L (13-40); Blood Urea Nitrogen 14 mg/dL (9-23); Calcium 10.2 mg/dL (8.7-10.4); Carbon Dioxide 25 mmol/L (20-31); Chloride 106 mmol/L (98-107); Glucose 92 mg/dL (74-106); Sodium 140 mmol/L (136-145); Total Protein 6.5 g/dL (5.7-8.2)
[2024-07-26 06:37] LABS: Bilirubin, Total 0.5 mg/dL (0.2-1.0)
[2024-07-26] MEDS: POTASSIUM EFFERVESENT TAB 25 MEQ PO ONE (09:09)
[2024-07-26] MEDS: MORPHINE SULFATE INJ 2 MG/ml SYRG IV PRN (09:14)
[2024-07-26] MEDS ORDERED: GASTROGRAFIN 30 ML SOL ONE (14:37)
--- NOTE | 2024-07-26 18:35 | DVH ---
Exam: CT CT AB PEL WITH ORAL CON ONLY History: bowel obstruction Comparison Study: 05/05/2024 TECHNIQUE: Multidetector CT of the pelvis without IV contrast. Axial, coronal and sagittal multiplana r reformats were obtained from the axial data set by the technologist. Radiation Dose Information: CT Dose: CTDI volume is 8.25 mGy. Dose-length product is 416.3 mGy*cm FINDINGS: Bibasilar atelectasis. 1.3 cm cystic structure over the right lung base. Partially visualized heart is unremarkable. Status post cholecystectomy. Mild hepatomegaly. Otherwise, liver, spleen, pancreas and adrenal glands are unremarkable. Right renal lower pole vascular calcification versus nonobstructing calculus. Punctate nonobstructing left renal upper pole calculus. Otherwise, kidneys, ureters and urinary bladder unremarkable. Status post hysterectomy. Phleboliths are noted within the pelvis. Small hiatal hernia. Mild gastric wall thickening which is most likely from inadequate distension. Th ere is contrast within the stomach, small and large bowel loops. No significant distention of the sma ll bowel loops. Appendix is not definitely visualized. Large bowel is unremarkable. No contrast with in the distal sigmoid and rectum. No evidence of intraperitoneal free air or free fluid. No evidence of aortic aneurysm. Mild atherosclerotic calcification of the aorta and bilateral iliacs . No significant lymphadenopathy. Minimal body wall edema. Moderate sized Left posterolateral mesenteric fat containing low-back hernia at the level of the left kidney. No destructive osseous lesions are noted. Posterior spinal fusion o f L4-L5. IMPRESSION: No evidence of bowel obstruction. Contrast is noted within the stomach, small and large bowel loops. Mild wall thickening of the stomach which may be due to inadequate distention with gastritis not excl uded. Small hiatal hernia. Additional findings as above.
[2024-07-26] MEDS ORDERED: hydroCHLOROthiazide 25 MG TAB PO SCH (22:00)
[2024-07-26] MEDS ORDERED: ALPRAZolam 0.25 MG TAB PO SCH (22:00)
[2024-07-27 01:00] VITALS: BP 139/82; PULSE 76; RESP 18; TEMP 98; O2SAT 98
[2024-07-27 05:00] VITALS: BP 113/52; PULSE 72; RESP 17; TEMP 98.2; O2SAT 93
[2024-07-27 13:00] VITALS: BP 135/74; PULSE 82; RESP 18; TEMP 98.1; O2SAT 98
--- NOTE | 2024-07-27 17:04 | DVHDS2 ---
Discharge Summary Date of Admission July 25, 2024 at 16:58 Date of Discharge: July 27, 2024 Labs/Diagnostic Data: Laboratory Results Test 07/26/24 05:41 White Blood Count 6.4 10^3/uL (4.4-10.8) Red Blood Count 3.92 10^6/uL (4.0-5.20) Hemoglobin 12.2 g/dL (12.2-16.2) Hematocrit 36.5 % (36.0-46.0) Mean Corpuscular Volume 92.9 fL (80.0-100.0) Mean Corpuscular Hemoglobin 31.1 pg (28.0-32.0) Mean Corpuscular Hemoglobin Concent 33.5 g/dL (32.0-36.0) Red Cell Distribution Width 13.6 % (11.8-14.3) Platelet Count 224 10^3/uL (140-450) Mean Platelet Volume 9.2 fL (6.9-10.8) Neutrophils (%) (Auto) 61.7 % (37.0-80.0) Lymphocytes (%) (Auto) 30.2 % (10.0-50.0) Monocytes (%) (Auto) 5.4 % (0.0-12.0) Eosinophils (%) (Auto) 1.7 % (0.0-7.0) Basophils (%) (Auto) 1.0 % (0.0-2.0) Neutrophils # (Auto) 3.9 10 ^3/uL (1.6-8.6) Lymphocytes # (Auto) 1.9 10 ^3/uL (0.4-5.4) Monocytes # (Auto) 0.3 10 ^3/uL (0-1.3) Eosinophils # (Auto) 0.1 10 ^3/uL (0-0.8) Basophils # (Auto) 0.1 10 ^3/uL (0-0.2) Nucleated Red Blood Cells 0.1 % Sodium Level 140 mmol/L (136-145) Potassium Level 3.0 mmol/L (3.5-5.1) Chloride Level 106 mmol/L (98-107) Carbon Dioxide Level 25 mmol/L (20-31) Anion Gap 9 (5-15) Blood Urea Nitrogen 14 mg/dL (9-23) Creatinine 0.70 mg/dL (0.550-1.02) Glomerular Filtration Rate Calc 88 mL/min (>90) BUN/Creatinine Ratio 20.0 (10.0-20.0) Serum Glucose 92 mg/dL (74-106) Calcium Level 10.2 mg/dL (8.7-10.4) Total Bilirubin 0.5 mg/dL (0.2-1.0) Aspartate Amino Transferase (AST) 14 U/L (13-40) Alanine Aminotransferase (ALT) 17 U/L (7-40) Alkaline Phosphatase 76 U/L (46-116) Total Protein 6.5 g/dL (5.7-8.2) Albumin 3.9 g/dL (3.2-4.8) Other Laboratory Tests 07/26/24 05:41 Brief Hx & Hospital Course: The patient is a 78-year-old female with past medical history of hypertension, UTIs, and gout who presented to [facility] ED transferred from Dr. Ovalles's office for evaluation of abdominal distention and lower back pain. Patient reports new onset of abdominal pain, back pain, rating 8/10 numeric scale, getting worse today. Patient was seen and evaluated in the ED, blood pressure 166/99, heart rate 82, temperature 97.9 F, O2 saturation 97% on room air. Patient was given [place] 5/325 mg p.o. x1, please see medication orders section in the computer. On my assessment, patient denied chest pain, no headache, no dizziness, no diaphoresis, no shortness of breath, no nausea, no vomiting, no fever, no chills. Patient was admitted for further evaluation and medical management. CT was unremarkable, gastritis noted Condition at Discharge: Good Final Diagnosis/Problems List gastritis Discharge Disposition: Home Discharge Instruct/Medications Diet: Regular Activity: No Restrictions, As Tolerated Follow Up/Referral: PCP and GI in 7 days Medications: same home medications Discharge Statement: "Patient was advised to return to the ER or call 911 if any headaches, dizziness, shortness of breath, chest pain, abdominal pain, bleeding, fevers, or worsening of medical condition. Patient was counseled about treatment plan, medications, possible side effects, patientverbalized understanding. All questions were answered to the best of my ability. This discharge took greater then 30 minutes in planning, reviewing documentation, counseling the patient, and discussing with other team members." ASSESSMENT ASSESSMENT Assessment gastritis Date of Service: July 27, 2024 Billing Provider: CHRISTIANNE TRACY MD Common Visit Codes: [id number] DISCH DAY >30min CHRISTIANNE TRACY MD July 27, 2024 17:04
[2024-07-27 17:13] VITALS: BP 135/74; PULSE 82; RESP 18; TEMP 98.1; O2SAT 98
== END 2024-07-27 18:40 | disposition home or self-care (01) | DRG 392 ==
LOC: WEST WING 16:58
PROVIDERS: ADMIT Hospitalist; ATTEND Hospitalist
DX: K29.70 Gastritis, unspecified, without bleeding (principal); I10 Essential (primary) hypertension; M54.50 Low back pain, unspecified; Z87.440 Personal history of urinary (tract) infections; Z90.49 Acquired absence of other specified parts of digestive tract; Z90.710 Acquired absence of both cervix and uterus; Z88.6 Allergy status to analgesic agent; Z88.0 Allergy status to penicillin
CPT/HCPCS: 36415; 74176; 80053; 85025; G0378